=== PATIENT | male | born 1950 | race Caucasian/White ===

== ENCOUNTER 2020-06-23 19:27 | Observation (INO) | payer MEDICARE ==
[~2020-06-23] VITALS: Ht 175.3 cm; Wt 88.5 kg
[2020-06-23] MEDS ORDERED: AMLO5 PO (19:48)
[2020-06-23] MEDS ORDERED: ATEN50 PO (19:49)
[2020-06-23] MEDS ORDERED: ATEN100 PO (19:49)
[2020-06-23] MEDS ORDERED: ASPI325EC PO (19:49)
[2020-06-23] MEDS ORDERED: ATOR20 PO (19:49)
[2020-06-23] MEDS ORDERED: GLIP10 PO (19:50)
[2020-06-23] MEDS ORDERED: HYDCHL25 PO (19:50)
[2020-06-23] MEDS ORDERED: METF500 PO (19:51)
[2020-06-23] MEDS ORDERED: LISI20 PO (19:51)
[2020-06-23] MEDS ORDERED: NOVOLIN N100 UNIT/2 SC (19:51)
[2020-06-23 20:12] LABS: BASOPHILS ABSOLUTE AUTO 0.07 K/mm3 (0.00-0.23); BASOPHILS PERCENT AUTO 1 % (0-2); EOSINOPHILS ABSOLUTE AUTO 0.11 K/mm3 (0.00-0.68); EOSINOPHILS PERCENT AUTO 1 % (0-6); Hematocrit 47.7 % (37.0-53.0); Hemoglobin 16.9 g/dL (13.5-17.5); IMMATURE GRAN ABSOLUTE AUTO 0.05 K/mm3 (0.00-0.10); IMMATURE GRAN PERCENT AUTO 0 % (0-1); LYMPHOCYTES ABSOLUTE AUTO 0.89 K/mm3 (0.84-5.20); LYMPHOCYTES PERCENT AUTO 8 % (21-46); MONOCYTES ABSOLUTE AUTO 0.24 K/mm3 (0.16-1.47); MONOCYTES PERCENT AUTO 2 % (4-13); Mean Corpuscular HGB 31.6 pg (26.0-34.0); Mean Corpuscular HGB Conc 35.4 g/dL (31.5-36.5); Mean Corpuscular Volume 89 fL (80-100); Mean Platelet Volume 9.3 fL (9.1-12.4); NEUTROPHILS ABSOLUTE AUTO 10.13 K/mm3 (1.96-9.15); NEUTROPHILS PERCENT AUTO 88 % (41-73); Platelet Count 126 K/mm3 (150-400); RDW Coefficient Variation 12.8 % (11.7-14.2); RDW Standard Deviation 42.1 fL (35.1-46.3); Red Blood Cell Count 5.35 M/mm3 (4.30-5.90); White Blood Cell Count 11.49 K/mm3 (4.00-11.30)
[2020-06-23 20:28] LABS: Albumin, Blood 2.9 g/dL (3.4-5.0); Albumin/Globulin Ratio 0.8 (0.8-1.8); Bilirubin, Total 1.2 mg/dL (0.1-1.0); Bun/Creatinine Ratio 22.5 (12.0-20.0); Calcium, Blood 8.6 mg/dL (8.5-10.1); Creatinine, Blood 1.73 mg/dL (0.60-1.20); Globulin, Blood 3.8 g/dL (2.2-4.0); Potassium, Blood 4.3 mmol/L (3.5-5.5); Total Protein, Blood 6.7 g/dL (6.4-8.2)
[2020-06-23 21:06] LABS: Source, Urine Voided
[2020-06-23 21:10] LABS: Bilirubin, Urine Neg (Neg); Blood, Urine 3+ (Neg); Glucose Qualitative, Urine 4+ (Neg); Ketones, Urine Neg (Neg); Leukocyte Esterase, Urine 1+ (Neg); Nitrite, Urine Neg (Neg); Protein, Urine 4+ (Neg); Urobilinogen, Urine NORM (Normal)
[2020-06-23 21:16] LABS: Appearance, Urine Hazy (Clear); Color, Urine Yellow (P-Yellow)
[2020-06-23 21:17] LABS: Granular Casts 0-2 /lpf (0)
[2020-06-23 21:19] LABS: Bacteria Mod /hpf; Squamous Epithelial Cells Few /hpf (Few)
--- NOTE | 2020-06-24 00:48 | NUR ---
ADMITTED 69 YR OLD MALE WITH DX OF SEPSIS, UTI AND PYELONEPHRITIS. HX DM. ALERT AND ORIENTED X 4. UP AD MARTIN. ORIENTED TO USE OF CALL LIGHT AND BED CONTROL. CALL LIGHT IN REACH.
--- NOTE | 2020-06-24 03:30 | NUR ---
SHIFT SUMMARY ADMITTED FROM THE ED EARLIER IN THE SHIFT WITH DX OF SEPSIS/PYELONEPHRITIS. ELEVATED TEMP, NEGATIVE TEST TO COVID. ALERT AND ORIENTED. PLACED ON IVF - SEE MAR FOR DETAILS. UP AD MARTIN. CALL LIGHT IN REACH. RESTING QUIETLY AT THIS TIME.
[2020-06-24 04:51] LABS: BASOPHILS ABSOLUTE AUTO 0.07 K/mm3 (0.00-0.23); BASOPHILS PERCENT AUTO 1 % (0-2); EOSINOPHILS ABSOLUTE AUTO 0.05 K/mm3 (0.00-0.68); EOSINOPHILS PERCENT AUTO 0 % (0-6); Hematocrit 42.8 % (37.0-53.0); Hemoglobin 15.3 g/dL (13.5-17.5); IMMATURE GRAN ABSOLUTE AUTO 0.06 K/mm3 (0.00-0.10); IMMATURE GRAN PERCENT AUTO 0 % (0-1); LYMPHOCYTES ABSOLUTE AUTO 1.32 K/mm3 (0.84-5.20); LYMPHOCYTES PERCENT AUTO 10 % (21-46); MONOCYTES ABSOLUTE AUTO 1.36 K/mm3 (0.16-1.47); MONOCYTES PERCENT AUTO 10 % (4-13); Mean Corpuscular HGB 32.1 pg (26.0-34.0); Mean Corpuscular HGB Conc 35.7 g/dL (31.5-36.5); Mean Corpuscular Volume 90 fL (80-100); Mean Platelet Volume 9.3 fL (9.1-12.4); NEUTROPHILS PERCENT AUTO 79 % (41-73); Platelet Count 105 K/mm3 (150-400); RDW Coefficient Variation 12.8 % (11.7-14.2); RDW Standard Deviation 42.2 fL (35.1-46.3); Red Blood Cell Count 4.77 M/mm3 (4.30-5.90); White Blood Cell Count 13.66 K/mm3 (4.00-11.30)
[2020-06-24 05:11] LABS: Albumin, Blood 2.4 g/dL (3.4-5.0); Albumin/Globulin Ratio 0.8 (0.8-1.8); Bun/Creatinine Ratio 21.7 (12.0-20.0); Calcium, Blood 7.8 mg/dL (8.5-10.1); Creatinine, Blood 1.8 mg/dL (0.60-1.20); Globulin, Blood 3.2 g/dL (2.2-4.0); Potassium, Blood 4.3 mmol/L (3.5-5.5); Total Protein, Blood 5.6 g/dL (6.4-8.2)
--- NOTE | 2020-06-24 18:34 | NUR ---
SHIFT SUMMARY. A&OX4, INDEPENDENT TO ROOM, PLEASANT AND COOPERATIVE WITH CARE. PT DENIES PAIN, SOB, N/V. IN TO VISIT TODAY, UPDATE GIVEN WITH VERBAL PERMISSION OF PT AND PT IN ROOM DISCUSSING PLAN OF CARE. CONTINUES WITH IV FLUIDS. SLIGHTLY FEBRILE THIS AFTERNOON, MANAGED WELL WITH APAP. NO OTHER CHANGES OR CONCERNS.
[2020-06-25 04:58] LABS: BASOPHILS ABSOLUTE AUTO 0.06 K/mm3 (0.00-0.23); BASOPHILS PERCENT AUTO 1 % (0-2); EOSINOPHILS ABSOLUTE AUTO 0.32 K/mm3 (0.00-0.68); EOSINOPHILS PERCENT AUTO 3 % (0-6); Hematocrit 42.8 % (37.0-53.0); Hemoglobin 15.1 g/dL (13.5-17.5); IMMATURE GRAN ABSOLUTE AUTO 0.05 K/mm3 (0.00-0.10); IMMATURE GRAN PERCENT AUTO 0 % (0-1); LYMPHOCYTES ABSOLUTE AUTO 1.36 K/mm3 (0.84-5.20); LYMPHOCYTES PERCENT AUTO 12 % (21-46); MONOCYTES ABSOLUTE AUTO 1.18 K/mm3 (0.16-1.47); MONOCYTES PERCENT AUTO 10 % (4-13); Mean Corpuscular HGB 31.4 pg (26.0-34.0); Mean Corpuscular HGB Conc 35.3 g/dL (31.5-36.5); Mean Corpuscular Volume 89 fL (80-100); Mean Platelet Volume 9.8 fL (9.1-12.4); NEUTROPHILS ABSOLUTE AUTO 8.39 K/mm3 (1.96-9.15); NEUTROPHILS PERCENT AUTO 74 % (41-73); Platelet Count 95 K/mm3 (150-400); RDW Coefficient Variation 12.8 % (11.7-14.2); Red Blood Cell Count 4.81 M/mm3 (4.30-5.90); White Blood Cell Count 11.36 K/mm3 (4.00-11.30)
[2020-06-25 05:13] LABS: Bun/Creatinine Ratio 21.4 (12.0-20.0); Calcium, Blood 7.4 mg/dL (8.5-10.1); Creatinine, Blood 1.82 mg/dL (0.60-1.20); Potassium, Blood 4.1 mmol/L (3.5-5.5)
--- NOTE | 2020-06-25 07:36 | NUR ---
SHIFT SUMMARY: PATIENT IS A&OX4, INDEPENDENT IN THE ROOM, USING URINAL TO VOID. NO REPORTS OF PAIN. LOW GRADE TEMP OF 99.2 OBSERVED THAT RESOLVED WITHOUT INTERVENTION.
[2020-06-25] MEDS ORDERED: CEFD300 PO (10:55)
--- NOTE | 2020-06-25 12:08 | NUR ---
1200 PT DISHCARGED HOME VIA PERSONAL VEHICLE ACCOMPANIED AND DRIVEN BY . ESCORTED TO ENTRANCE BY THIS RN. D/C INSTRUCTIONS REVIEWED WITH PT AND COPY PROVIDED. PT INSTRUCTED TO RETURN TO ER FOR SIGNIFICANT ELEVATED TEMPERATURE. IV REMOVED. NEW RX FAXED TO [facility] PER PT REQUEST. NO OTHER CHANGES OR CONCERNS.
== END 2020-06-25 11:58 | disposition home or self-care (01) ==
LOC: ER 19:27 → MEDS 19:28
PROVIDERS: Emergency Medicine; Internal Medicine; Physician Assistant; ADMIT Internal Medicine
DX: N17.9 Acute kidney failure, unspecified (principal); E11.65 Type 2 diabetes mellitus with hyperglycemia; J44.9 Chronic obstructive pulmonary disease, unspecified; N39.0 Urinary tract infection, site not specified; A41.9 Sepsis, unspecified organism; Z79.82 Long term (current) use of aspirin
CPT/HCPCS: 36415; 71045; 76770; 80048; 80053; 81001; 82947; 83605; 85025; 87040; 87076; 87077; 87086; 87185; 87186; 93005; 93010; 94760; 96365; 96376; 99285-25; A9270; G0378; J0696; J1650; J1815; J7030

== ENCOUNTER → 2021-04-12 | Outpatient (CLI) | payer MEDICARE ==
[~2021-04-12] MED LIST: AMLO5 PO; ASPI325EC PO; ATEN100 PO; ATEN50 PO; ATOR20 PO; CEFD300 PO; GLIP10 PO; HYDCHL25 PO; LISI20 PO; METF500 PO; NOVOLIN N100 UNIT/2 SC
[2021-04-12 19:50] LABS: Protein, Urine Quantitative 262.2 mg/dL (0.0-11.9)
== END | disposition home or self-care (01) ==
LOC: LAB SHORT 08:00 → LAB FUT 08:00
PROVIDERS: Internal Medicine Nephrology
DX: N18.30 Chronic kidney disease, stage 3 unspecified (principal); D63.1 Anemia in chronic kidney disease; D50.9 Iron deficiency anemia, unspecified; N25.81 Secondary hyperparathyroidism of renal origin; E55.9 Vitamin D deficiency, unspecified; E78.00 Pure hypercholesterolemia, unspecified; D51.8 Other vitamin B12 deficiency anemias; D52.8 Other folate deficiency anemias; R76.9 Abnormal immunological finding in serum, unspecified; R94.5 Abnormal results of liver function studies; R94.6 Abnormal results of thyroid function studies
CPT/HCPCS: 81050; 82043; 82570; 84156

== ENCOUNTER → 2022-01-16 | Outpatient (CLI) | payer MEDICARE ==
[2022-01-16 17:57] LABS: Sodium, Urine 65 mmol/L (20-110)
[2022-01-16 18:44] LABS: Protein, Urine Quantitative 451.6 mg/dL (0.0-11.9)
== END | disposition home or self-care (01) ==
LOC: LAB 11:00 → LAB SHORT 11:00
PROVIDERS: Internal Medicine Nephrology
DX: N18.30 Chronic kidney disease, stage 3 unspecified (principal); D63.1 Anemia in chronic kidney disease; N25.81 Secondary hyperparathyroidism of renal origin; E55.9 Vitamin D deficiency, unspecified; E78.00 Pure hypercholesterolemia, unspecified; R76.9 Abnormal immunological finding in serum, unspecified; R94.5 Abnormal results of liver function studies; R94.6 Abnormal results of thyroid function studies
CPT/HCPCS: 81050; 82043; 84156; 84300

== ENCOUNTER → 2022-03-19 | Outpatient (CLI) | payer MEDICARE ==
[2022-03-19 17:06] LABS: Protein, Urine Quantitative 461.6 mg/dL (0.0-11.9)
== END | disposition home or self-care (01) ==
LOC: LAB SHORT 10:00
PROVIDERS: Internal Medicine Nephrology
DX: N18.30 Chronic kidney disease, stage 3 unspecified (principal); D63.1 Anemia in chronic kidney disease; N25.81 Secondary hyperparathyroidism of renal origin; E55.9 Vitamin D deficiency, unspecified; E78.00 Pure hypercholesterolemia, unspecified; G60.9 Hereditary and idiopathic neuropathy, unspecified; R94.5 Abnormal results of liver function studies; R94.6 Abnormal results of thyroid function studies
CPT/HCPCS: 81050; 82043; 82570; 84156

== ENCOUNTER 2023-01-16 07:08 | Day surgery (SDC) | payer MEDICARE ==
[~2023-01-16] VITALS: Ht 172.7 cm; Wt 95.0 kg
[2023-01-16] VITALS (7 sets, daily range): BP systolic 152–167; BP diastolic 78–87
--- NOTE | 2023-01-16 09:18 | NUR ---
PT BACK TO RECOVERY ROOM. PT SITTING UP AND EATING BREAKFAST
--- NOTE | 2023-01-16 10:51 | NUR ---
PT AND SPOUSE VERBALIZE D/C INSTRUCTIONS. PT WHEELED OUT OF DEPT. IV D/C CATHETER INTACT.
== END 2023-01-16 10:56 | disposition home or self-care (01) ==
LOC: MHTC 07:08
DX: E11.22 Type 2 diabetes mellitus with diabetic chronic kidney disease (principal); I12.0 Hypertensive chronic kidney disease with stage 5 chronic kidney disease or end stage renal disease; N18.6 End stage renal disease; F17.210 Nicotine dependence, cigarettes, uncomplicated; Z79.899 Other long term (current) drug therapy
CPT/HCPCS: 36558; 76937; 77001; 99152; 99153; C1750; C1769; C1894; J1644; J2250; J3010; J7040

== ENCOUNTER 2023-06-03 10:02 | Day surgery (SDC) | payer MEDICARE ==
[~2023-06-03] VITALS: Ht 172.7 cm; Wt 91.2 kg
[2023-06-03 15:45] VITALS: BP 144/79
== END 2023-06-03 15:30 | disposition home or self-care (01) ==
LOC: MHTC 10:02
DX: E11.22 Type 2 diabetes mellitus with diabetic chronic kidney disease (principal); I12.0 Hypertensive chronic kidney disease with stage 5 chronic kidney disease or end stage renal disease; N18.6 End stage renal disease; E11.621 Type 2 diabetes mellitus with foot ulcer; L97.529 Non-pressure chronic ulcer of other part of left foot with unspecified severity; F17.210 Nicotine dependence, cigarettes, uncomplicated; Z79.899 Other long term (current) drug therapy

== ENCOUNTER 2023-06-09 04:23 | Day surgery (SDC) | payer MEDICARE ==
[~2023-06-09 04:23] MED LIST changes: +ACET325 PO; +Acetaminophen325 M1 PO; +FURO40 PO; +LEVOTHYROXINE25 MC9 PO; +METO100ER; +MIDO5 PO; +MULTIVITAMIN PO; +POTA8 PO; +[UNRECOGNIZED DRUG - OTHER] PO
== END 2023-06-09 23:17 | disposition home or self-care (01) ==
LOC: WOUND 04:23
DX: E10.621 Type 1 diabetes mellitus with foot ulcer (principal); L97.522 Non-pressure chronic ulcer of other part of left foot with fat layer exposed; I12.0 Hypertensive chronic kidney disease with stage 5 chronic kidney disease or end stage renal disease; E10.22 Type 1 diabetes mellitus with diabetic chronic kidney disease; N18.6 End stage renal disease; E10.51 Type 1 diabetes mellitus with diabetic peripheral angiopathy without gangrene; E10.29 Type 1 diabetes mellitus with other diabetic kidney complication; Z99.2 Dependence on renal dialysis; F17.200 Nicotine dependence, unspecified, uncomplicated
CPT/HCPCS: G0463

== ENCOUNTER 2023-06-23 03:59 | Day surgery (SDC) | payer MEDICARE | END 2023-06-23 22:53 | disposition home or self-care (01) | LOC: WOUND 03:59 | DX: E10.621 Type 1 diabetes mellitus with foot ulcer (principal); L97.822 Non-pressure chronic ulcer of other part of left lower leg with fat layer exposed; E10.51 Type 1 diabetes mellitus with diabetic peripheral angiopathy without gangrene; I12.9 Hypertensive chronic kidney disease with stage 1 through stage 4 chronic kidney disease, or unspecified chronic kidney disease; E10.22 Type 1 diabetes mellitus with diabetic chronic kidney disease; N18.6 End stage renal disease; Z79.4 Long term (current) use of insulin; Z72.0 Tobacco use ==

== ENCOUNTER 2023-07-22 07:06 | Day surgery (SDC) | payer MEDICARE ==
[~2023-07-22] VITALS: Ht 172.7 cm; Wt 89.0 kg
[~2023-07-22 07:06] MED LIST changes: +AMLO10 PO; +CALCIUM ACETAT667 MG PO; +KAPSPARGO SPRI100 MG PO; +LEVSOD25 PO; +MULVITA PO; +ZESTRIL40 M1 PO
[2023-07-22 07:34] VITALS: BP 142/75
[2023-07-22] MEDS ORDERED: NS 1,000 ML IV ONE ×2 (07:46→08:31)
[2023-07-22] MEDS ORDERED: FentaNYL Citrate 50 MCG/ML 2 ML Injection ONE (08:31)
[2023-07-22] MEDS ORDERED: Midazolam HCl 1MG / ML 2ML Vial ONE (08:31)
[2023-07-22] MEDS ORDERED: NS 500 ML IV ONE (08:45)
[2023-07-22 10:15] VITALS: BP 141/79
[2023-07-22 10:30] VITALS: BP 140/78
[2023-07-22 10:45] VITALS: BP 141/91
[2023-07-22 11:00] VITALS: BP 133/72
--- NOTE | 2023-07-22 11:10 | NUR ---
PT AND S/O VERBALIZES UYNDERSTANDING WRITTEN AND VERBAL INSTRUCTIONS. PT SITE REMAINS C/D/I. NO BLEEDING NOTED. VSS. NADN. PT IV DC'D. CATH INTACT. PRESSURE DSG APPLIED. PT DRESSES SELF WITHOUT DIFF. PT DC TO HOME VIA S/O BY SHAUNA
== END 2023-07-22 12:49 | disposition home or self-care (01) ==
LOC: MHTC 07:06
DX: T85.611A Breakdown (mechanical) of intraperitoneal dialysis catheter, initial encounter (principal); E11.22 Type 2 diabetes mellitus with diabetic chronic kidney disease; I12.0 Hypertensive chronic kidney disease with stage 5 chronic kidney disease or end stage renal disease; N18.6 End stage renal disease; F17.210 Nicotine dependence, cigarettes, uncomplicated; Z79.899 Other long term (current) drug therapy; Z99.2 Dependence on renal dialysis
CPT/HCPCS: 49418; 99152; 99153; C1750; C1769; C1887; C1894; J2250; J3010; J7030; J7040; Q9967

== ENCOUNTER 2023-07-30 17:01 | Emergency (ER) | payer MEDICARE ==
[~2023-07-30] VITALS: Ht 172.7 cm; Wt 87.1 kg
[2023-07-30 17:14] VITALS: BP 128/67
[2023-07-30 17:31] LABS: BASOPHILS ABSOLUTE AUTO 0.05 K/mm3 (0.00-0.23); BASOPHILS PERCENT AUTO 0 % (0-2); EOSINOPHILS ABSOLUTE AUTO 0.32 K/mm3 (0.00-0.68); EOSINOPHILS PERCENT AUTO 3 % (0-6); Hematocrit 43.1 % (37.0-53.0); IMMATURE GRAN PERCENT AUTO 1 % (0-1); LYMPHOCYTES ABSOLUTE AUTO 1.63 K/mm3 (0.84-5.20); LYMPHOCYTES PERCENT AUTO 13 % (21-46); MONOCYTES ABSOLUTE AUTO 0.85 K/mm3 (0.16-1.47); MONOCYTES PERCENT AUTO 7 % (4-13); Mean Corpuscular HGB Conc 34.8 g/dL (31.5-36.5); Mean Corpuscular Volume 95 fL (80-100); Mean Platelet Volume 9.1 fL (9.1-12.4); NEUTROPHILS ABSOLUTE AUTO 9.73 K/mm3 (1.96-9.15); NEUTROPHILS PERCENT AUTO 77 % (41-73); Platelet Count 179 K/mm3 (150-400); RDW Coefficient Variation 14.1 % (11.7-14.2); RDW Standard Deviation 48.9 fL (35.1-46.3); Red Blood Cell Count 4.55 M/mm3 (4.30-5.90); White Blood Cell Count 12.68 K/mm3 (4.00-11.30)
[2023-07-30 18:00] LABS: Albumin, Blood 2.8 g/dL (3.4-5.0); Albumin/Globulin Ratio 0.6 (0.8-1.8); Bilirubin, Total 0.5 mg/dL (0.1-1.0); Calcium, Blood 9.4 mg/dL (8.5-10.1); Creatinine, Blood 6.21 mg/dL (0.60-1.20); Globulin, Blood 4.7 g/dL (2.2-4.0); Potassium, Blood 4.1 mmol/L (3.5-5.5); Total Protein, Blood 7.5 g/dL (6.4-8.2)
[2023-07-31] MEDS ORDERED: FERSU300 PO (21:40)
[2023-07-31] MEDS ORDERED: NOVOLIN N100 UNIT/2 SC (23:02)
[2023-07-31] MEDS ORDERED: TRAM50 PO (23:03)
[2023-07-31] MEDS ORDERED: [UNRECOGNIZED DRUG - CODE] PO (23:04)
== END 2023-07-30 18:32 | disposition left against medical advice (07) ==
LOC: ER 17:01
PROVIDERS: Student in an Organized Health Care Education/Training Program
DX: R10.9 Unspecified abdominal pain (principal); Z53.29 Procedure and treatment not carried out because of patient's decision for other reasons; K65.9 Peritonitis, unspecified; N18.6 End stage renal disease; R11.2 Nausea with vomiting, unspecified; Z99.2 Dependence on renal dialysis
CPT/HCPCS: 80053; 85025; 87070; 87075; 87077; 87147; 87186; 87205; 89051

== ENCOUNTER 2023-07-31 13:12 | Inpatient (IN) | payer MEDICARE ==
[~2023-07-31] VITALS: Ht 172.7 cm; Wt 91.1 kg
[2023-07-31] MEDS ORDERED: Acetaminophen 325 MG TABLET PO PRN (18:20)
[2023-07-31] MEDS ORDERED: OxyCODONE HCL 5 MG TAB PO PRN (18:20)
[2023-07-31] MEDS ORDERED: Nicotine 21 MG PATCH TOP SCH (19:00)
[2023-07-31] MEDS ORDERED: Vancomycin HCL 1,000 MG in NS 100 ML IV ONE (19:00)
[2023-07-31] MEDS ORDERED: CefTRIAXone Sodium 2,000 MG in NS 100 ML IV SCH (21:00)
[2023-07-31 21:08] VITALS: BP 111/70
[2023-07-31] MEDS ORDERED: FERSU300 PO (21:40)
[2023-07-31] MEDS ORDERED: NS 250 ML IV PRN (22:30)
[2023-07-31] MEDS ORDERED: NOVOLIN N100 UNIT/2 SC (23:02)
[2023-07-31] MEDS ORDERED: TRAM50 PO (23:03)
[2023-07-31] MEDS ORDERED: [UNRECOGNIZED DRUG - CODE] PO (23:04)
--- NOTE | 2023-08-01 04:31 | NUR ---
SHIFT SUMMARY PT ADMITTED THIS SHIFT FOR PERITONITIS. HE HAS A DIALYSIS CATHETER IN HIS ABDOMEN WHICH HAS BECOME INFECTED. HIS WAS WITH HIM WHEN HE ARRIVED ON FLOOR. HE IS INDEPENDANT IN ROOM AND A&OX4. HE HAS SLIGHT DIFFICULTY HEARING, BUT IS VERY PLEASANT AND HAS NO DIFFICULTY UNDERSTANDING DIRECTION GIVEN. CONSULT WITH DR. REAVES ORDERED AND FAXED IN APPROX. 0120. PT HAS BEEN COOPERATIVE WITH CARE. NICOTINE PATCH FELL OFF AND WAS DISPOSED OF APPROX. 0437. LUNG SOUNDS ARE DIMINISHED WITH TIGHT, COURSE SOUNDS ON EXPIRATION.
[2023-08-01 04:37] VITALS: BP 111/62
[2023-08-01] MEDS ORDERED: Levothyroxine Sodium 0.025 MG Tab PO SCH (06:00)
[2023-08-01 06:12] LABS: BASOPHILS ABSOLUTE AUTO 0.05 K/mm3 (0.00-0.23); BASOPHILS PERCENT AUTO 1 % (0-2); EOSINOPHILS ABSOLUTE AUTO 0.15 K/mm3 (0.00-0.68); EOSINOPHILS PERCENT AUTO 2 % (0-6); Hematocrit 39.7 % (37.0-53.0); Hemoglobin 13.7 g/dL (13.5-17.5); IMMATURE GRAN ABSOLUTE AUTO 0.08 K/mm3 (0.00-0.10); IMMATURE GRAN PERCENT AUTO 1 % (0-1); LYMPHOCYTES ABSOLUTE AUTO 1.58 K/mm3 (0.84-5.20); LYMPHOCYTES PERCENT AUTO 16 % (21-46); MONOCYTES ABSOLUTE AUTO 0.75 K/mm3 (0.16-1.47); MONOCYTES PERCENT AUTO 8 % (4-13); Mean Corpuscular HGB 33.2 pg (26.0-34.0); Mean Corpuscular HGB Conc 34.5 g/dL (31.5-36.5); Mean Corpuscular Volume 96 fL (80-100); Mean Platelet Volume 9.1 fL (9.1-12.4); NEUTROPHILS ABSOLUTE AUTO 7.09 K/mm3 (1.96-9.15); NEUTROPHILS PERCENT AUTO 73 % (41-73); Platelet Count 180 K/mm3 (150-400); RDW Coefficient Variation 13.8 % (11.7-14.2); RDW Standard Deviation 48.7 fL (35.1-46.3); Red Blood Cell Count 4.13 M/mm3 (4.30-5.90)
[2023-08-01 06:44] LABS: Alanine Aminotransfer (ALT/SGP 46 U/L (12-78); Albumin, Blood 2.5 g/dL (3.4-5.0); Albumin/Globulin Ratio 0.6 (0.8-1.8); Alk Phos 74 U/L (50-136); Anion Gap 12 mmol/L (3-11); Aspartate Aminotrans (AST/SGOT 29 U/L (12-37); Bilirubin, Total 0.5 mg/dL (0.1-1.0); Blood Urea Nitrogen 39 mg/dL (8-24); Bun/Creatinine Ratio 7.5 (12.0-20.0); CO2, Blood 27 mmol/L (21-32); Calcium, Blood 9.2 mg/dL (8.5-10.1); Chloride, Blood 100 mmol/L (98-108); Creatinine, Blood 5.21 mg/dL (0.60-1.20); Globulin, Blood 4.1 g/dL (2.2-4.0); Glomerular Filtration Rate 11 (60-); Glucose, Blood 229 mg/dL (70-99); Potassium, Blood 3.9 mmol/L (3.5-5.5); Sodium, Blood 135 mmol/L (136-145); Total Protein, Blood 6.6 g/dL (6.4-8.2); Vancomycin, Random 21.2 ug/mL
[2023-08-01] MEDS ORDERED: Insulin Human Lispro 100 Units/ML 3ML Syringe SC SCH (07:30)
[2023-08-01 07:55] VITALS: BP 116/85
[2023-08-01] MEDS ORDERED: Vancomycin HCL 1,000 MG in NS 100 ML IV ONE ×2 (08:30→12:00)
[2023-08-01] MEDS ORDERED: Atorvastatin 10 MG Tab PO SCH (09:00)
[2023-08-01] MEDS ORDERED: Metoprolol Succinate 50 MG TABCR PO SCH (09:00)
[2023-08-01] MEDS ORDERED: Heparin Sodium,Porcine 5,000 UNIT/0.5 ML SDV SC SCH (09:00)
[2023-08-01] MEDS ORDERED: Lisinopril 20 MG Tab PO SCH (09:00)
[2023-08-01] MEDS ORDERED: AmLODIPine Besylate 5 MG Tab PO SCH (09:00)
[2023-08-01] MEDS ORDERED: Insulin NPH 100 Unit / ML 10ML Vial SC SCH (11:00)
[2023-08-01] MEDS ORDERED: NOVOLIN 70100 UNIT/4 SC (11:47)
[2023-08-01] MEDS ORDERED: PROBIOTIC1 EA14 PO (11:48)
--- NOTE | 2023-08-01 12:46 | NUR ---
DISCHARGE Patient ready for discharge. spoke to Jerome on the phone. Plan to have patient DC home and first thing friday, call [facility] office to set up appt. Patient verbalized understanding. Left [facility] unit at 1215.
== END 2023-08-01 12:48 | disposition home or self-care (01) | DRG 919 ==
LOC: ER 13:12 → MEDS 18:16 → ENPENDDIS 08-01 11:58 → MEDS 08-01 12:48
PROVIDERS: Nurse Practitioner Acute Care; ADMIT Internal Medicine
DX: T85.71XA Infection and inflammatory reaction due to peritoneal dialysis catheter, initial encounter (principal); K65.8 Other peritonitis; N18.6 End stage renal disease; I12.0 Hypertensive chronic kidney disease with stage 5 chronic kidney disease or end stage renal disease; E87.1 Hypo-osmolality and hyponatremia; Y73.1 Therapeutic (nonsurgical) and rehabilitative gastroenterology and urology devices associated with adverse incidents; B95.61 Methicillin susceptible Staphylococcus aureus infection as the cause of diseases classified elsewhere; E11.22 Type 2 diabetes mellitus with diabetic chronic kidney disease; E78.5 Hyperlipidemia, unspecified; E03.9 Hypothyroidism, unspecified; J44.9 Chronic obstructive pulmonary disease, unspecified; T85.631A Leakage of intraperitoneal dialysis catheter, initial encounter; F17.200 Nicotine dependence, unspecified, uncomplicated; E88.09 Other disorders of plasma-protein metabolism, not elsewhere classified; E87.70 Fluid overload, unspecified; Z99.2 Dependence on renal dialysis; Z86.73 Personal history of transient ischemic attack (TIA), and cerebral infarction without residual deficits; Z79.4 Long term (current) use of insulin
CPT/HCPCS: 36415; 74176; 80053; 80202; 82947; 85025; 99284-25; A9270; J0696; J1644; J1815; J3370; J7050

== ENCOUNTER 2023-09-02 06:54 | Day surgery (SDC) | payer MEDICARE ==
[2023-09-02] VITALS (7 sets, daily range): BP systolic 116–158; BP diastolic 77–104
[~2023-09-02] VITALS: Ht 172.7 cm; Wt 93.2 kg
[~2023-09-02 06:54] MED LIST changes: +CEPH500 PO; +FERSU300 PO; +NOVOLIN 70100 UNIT/4 SC; +PROBIOTIC1 EA14 PO; +TRAM50 PO; +[UNRECOGNIZED DRUG - CODE] PO
[2023-09-02] MEDS ORDERED: NS 500 ML IV ONE ×2 (07:57→08:00)
[2023-09-02] MEDS ORDERED: Heparin Sodium 1000 Units/ML 10ML MDV ONE (07:57)
[2023-09-02] MEDS ORDERED: FentaNYL Citrate 50 MCG/ML 2 ML Injection ONE ×2 (07:59→09:05)
[2023-09-02] MEDS ORDERED: Midazolam HCl 1MG / ML 2ML Vial ONE ×2 (07:59→09:05)
[2023-09-02] MEDS ORDERED: Heparin Sodium 10,000 Units/ML 1ML MDV ONE (08:00)
--- NOTE | 2023-09-02 10:54 | NUR ---
PT RETURNED TO RECOVERY ROOM IN BED. PD CATH SITE SOFT NON-TENDER WITH NO HEMATOMA, SLIGHT TRACK OOZING AND INTACT DRESSING IN PLACE. R IJ PERM CATH SITE SOFT NON-TENDER WITH NO HEMATOMA, NO BLEEDING. CALL LIGHT IN REACH. PT DRINKING COFFEE AND EATING LUNCH.
--- NOTE | 2023-09-02 11:50 | NUR ---
NO CHANGES TO PD OR PERMCATH SITES. DISCHARGE INSTURCTIONS REVIEWED ALL QUESTIONS ANSWERED. 20 IV DISCONTINUED FROM R AC SITE WITH INTACT CANNULA. PT AMBULATED TO BR TO VOID. PT ESCORTED OUT VIA WHEELCHAIR ESCORT.
== END 2023-09-02 12:00 | disposition home or self-care (01) ==
LOC: MHTC 06:54
DX: T85.71XA Infection and inflammatory reaction due to peritoneal dialysis catheter, initial encounter (principal); T82.41XA Breakdown (mechanical) of vascular dialysis catheter, initial encounter; K65.9 Peritonitis, unspecified; E11.22 Type 2 diabetes mellitus with diabetic chronic kidney disease; I12.0 Hypertensive chronic kidney disease with stage 5 chronic kidney disease or end stage renal disease; N18.6 End stage renal disease; Z87.891 Personal history of nicotine dependence; Z79.899 Other long term (current) drug therapy
CPT/HCPCS: 36582; 49422; 99152; 99153; C1750; C1769; J1644; J2250; J3010; J7040; J7050

== ENCOUNTER 2023-09-16 07:04 | Day surgery (SDC) | payer MEDICARE ==
[2023-09-16] VITALS (8 sets, daily range): BP systolic 85–106; BP diastolic 57–71
[~2023-09-16] VITALS: Ht 172.7 cm; Wt 93.2 kg
[2023-09-16] MEDS ORDERED: Nitroglycerin 2 MG/20 ML BTL ONE (07:15)
[2023-09-16] MEDS ORDERED: NS 250 ML IV ONE (07:15)
[2023-09-16] MEDS ORDERED: NS 1,000 ML IV ONE ×2 (07:15→08:30)
[2023-09-16] MEDS ORDERED: Heparin Sodium 1000 Units/ML 10ML MDV ONE (07:15)
[2023-09-16] MEDS ORDERED: FentaNYL Citrate 50 MCG/ML 2 ML Injection ONE (08:18)
[2023-09-16] MEDS ORDERED: Midazolam HCl 1MG / ML 2ML Vial ONE (08:18)
[2023-09-16] MEDS ORDERED: Phenylephrine HCl 100 MCG/ML-NS 10MLSYR (1MG/10ML) ONE (08:19)
[2023-09-16] MEDS ORDERED: NS 500 ML IV ONE ×2 (08:19→08:30)
[2023-09-16] MEDS ORDERED: CeFAZolin Sodium 2,000 MG VIAL ONE (10:01)
[2023-09-16] MEDS ORDERED: NS 100 ML IV ONE (10:02)
--- NOTE | 2023-09-16 10:10 | NUR ---
ASSUMED CARE OF PT POST PROCEDURE. PT AWAKE AND CONVERSING APPROPRIATELY; DENIES PAIN POST PROCEDURE. MONITOR SR 70'S, B/P 94/67, AFEBRILE, SPI2 93 % RA. PD CATH SITE NO SWELLING/HEMATOMA, MEDIPORE DRESSING AND TEGADERM DRSG INTACT. PT RECEIVING 2 MG IV ANCEF. PT TAKING SIPS OF COFFEE WITHOUT ISSUE.
--- NOTE | 2023-09-16 11:10 | NUR ---
ADDITIONAL 175CC FLUID DRAINED FROM PD CATH, CAP PLACED.
--- NOTE | 2023-09-16 11:56 | NUR ---
PT RECEIVED DISCHARGE INSTRUCTIONS, MED LIST AND AFTER CARE INSTRUCTIONS; VERBALIZED GOOD UNDERSTANDING. PT LEFT FACILITY VIA W/C, CONDITION STABLE.
== END 2023-09-16 11:56 | disposition home or self-care (01) ==
LOC: MHTC 07:04
DX: I12.0 Hypertensive chronic kidney disease with stage 5 chronic kidney disease or end stage renal disease (principal); E11.22 Type 2 diabetes mellitus with diabetic chronic kidney disease; N18.6 End stage renal disease; Z99.2 Dependence on renal dialysis; Z87.891 Personal history of nicotine dependence; Z79.899 Other long term (current) drug therapy
CPT/HCPCS: 49418; 76937; 99152; 99153; C1750; C1769; C1887; C1894; J0690; J1644; J2250; J2371; J3010; J7030; J7040; J7050; Q9967

== ENCOUNTER 2023-11-27 08:18 | Day surgery (SDC) | payer MEDICARE ==
[~2023-11-27] VITALS: Ht 172.7 cm; Wt 93.6 kg
[~2023-11-27 08:18] MED LIST changes: +ATOR20; +FERSU300; +HUMULIN N100 UNIT/5
[2023-11-27] MEDS ORDERED: METO100ER PO (08:42)
[2023-11-27] MEDS ORDERED: NOVOLIN N100 UNIT/2 SL (08:44)
[2023-11-27 08:54] VITALS: BP 101/67
[2023-11-27] MEDS ORDERED: Lactated Ringer's 1,000 ML IV SCH (09:00)
[2023-11-27] MEDS ORDERED: CeFAZolin Sodium 2,000 MG in NS 100 ML IV SCH (09:00)
[2023-11-27] MEDS ORDERED: Insulin Regular 100 UNIT/ML 10ML Vial ONE (09:18)
[2023-11-27] MEDS ORDERED: Insulin Regular 100 UNIT/ML 10ML Vial IV ONE (09:18)
[2023-11-27] MEDS ORDERED: NS 1,000 ML IV SCH (09:20)
--- NOTE | 2023-11-27 09:39 | NUR ---
Ambulatory in Day Surgery History, Chart, Medications and Allergies reviewed before start of procedure. Pre-Op teaching done. Pt verbalizes understanding. Patient States Post-Procedure ride home has been arranged.
[2023-11-27] MEDS ORDERED: Bupivacaine 0.5% HCl 5 MG/ML 30MLVIAL ONE (10:00)
--- NOTE | 2023-11-27 10:08 | NUR ---
0915 INFORMED ANESTHESIA THAT CBG WAS 346. NEW ORDERS TO GIVE INSULIN 10 UNITS IV X1 AND REPEAT BLOOD SUGAR IN 30 MINS TO 1 HR. 1001 MO LOSS PREVENTION ANALYST AND DR MORALES AT BEDSIDE TO TALK WITH PATIENT. SURGERY CANCELLED DUE TO BLOOD SUGAR CONTINUES TO BE 342 AFTER IV REGULAR INSULIN. WILL RESCHEDULE.
--- NOTE | 2023-11-27 10:20 | NUR ---
Patient up to Ambulate independently. Gait steady. Discharge home. Dr. Hdez will reschedule surgery.
== END 2023-11-27 22:59 | disposition home or self-care (01) ==
LOC: ORSCMMR 08:18 → ORD 09:30 → ORSCMMR 09:30
DX: K42.9 Umbilical hernia without obstruction or gangrene (principal); E11.9 Type 2 diabetes mellitus without complications; Z53.9 Procedure and treatment not carried out, unspecified reason
CPT/HCPCS: 82947; 84132; J0690; J1815; J7030; J7120

== ENCOUNTER 2024-02-16 08:00 | Day surgery (SDC) | payer MEDICARE ==
[~2024-02-16] VITALS: Ht 172.7 cm; Wt 100.0 kg
[~2024-02-16 08:00] MED LIST changes: +CALC.25 PO; -FERSU300; +METO100ER PO
[2024-02-16 08:40] VITALS: BP 168/94
[2024-02-16] MEDS ORDERED: Heparin Sodium 1000 Units/ML 10ML MDV ONE (11:24)
[2024-02-16] MEDS ORDERED: NS 500 ML IV ONE (11:24)
[2024-02-16] MEDS ORDERED: NS 1,000 ML IV ONE (11:26)
[2024-02-16] MEDS ORDERED: Heparin Sodium 10,000 Units/ML 1ML MDV ONE (12:02)
[2024-02-16 12:36] VITALS: BP 121/105
--- NOTE | 2024-02-16 12:40 | NUR ---
ASSUMED CARE OF PT POST PROCEDURE. PT AWAKE AND CONVERSING APPROPRIATELY; DENIES PAIN POST PROCEDURE. MONITOR SR 60'S, B/P 121/105, SPO2 95% RA. R CHEST DIALYSIS CATH NO SWELLING/HEMATOMA, TEGADERM DRSG IN PLACE; PRESSURE DRESSING REMAINS IN PLACE.
[2024-02-16 12:45] VITALS: BP 154/93
[2024-02-16 13:00] VITALS: BP 150/92
--- NOTE | 2024-02-16 13:15 | NUR ---
PT DRESSED SELF WITHOUT ISSUE, SITE UNCHANGED.
--- NOTE | 2024-02-16 13:24 | NUR ---
PT AND RECEIVED DISCHARGE INSTRUCTIONS, MED LIST AND AFTER CARE INSTRUCTIONS; VERBALIZED GOOD UNDERSTANDING. PT LEFT FACILITY VIA W/C, CONDITION STABLE.
[2024-02-24] MEDS ORDERED: VISBIOME 112.51 EACH PO (15:32)
== END 2024-02-16 13:24 | disposition home or self-care (01) ==
LOC: MHTC 08:00 → ORSCMMR 08:04 → MHTC 13:24
DX: T82.41XA Breakdown (mechanical) of vascular dialysis catheter, initial encounter (principal); I12.0 Hypertensive chronic kidney disease with stage 5 chronic kidney disease or end stage renal disease; E11.22 Type 2 diabetes mellitus with diabetic chronic kidney disease; N18.6 End stage renal disease; J44.9 Chronic obstructive pulmonary disease, unspecified; E78.5 Hyperlipidemia, unspecified; E03.9 Hypothyroidism, unspecified; Z87.891 Personal history of nicotine dependence; Z79.4 Long term (current) use of insulin; Z79.890 Hormone replacement therapy; Z79.899 Other long term (current) drug therapy; Z86.73 Personal history of transient ischemic attack (TIA), and cerebral infarction without residual deficits
CPT/HCPCS: 36581; C1750; C1769; J1644; J7030; J7040; Q9967

== ENCOUNTER 2024-02-16 14:14 | Emergency (ER) | payer MEDICARE ==
[~2024-02-16] VITALS: Ht 172.7 cm; Wt 99.8 kg
[2024-02-16 14:19] VITALS: BP 144/92
== END 2024-02-16 17:21 | disposition home or self-care (01) ==
LOC: ER 14:14
DX: T82.838A Hemorrhage due to vascular prosthetic devices, implants and grafts, initial encounter (principal); E11.22 Type 2 diabetes mellitus with diabetic chronic kidney disease; N18.6 End stage renal disease; I10 Essential (primary) hypertension; E03.9 Hypothyroidism, unspecified; J44.9 Chronic obstructive pulmonary disease, unspecified; F17.210 Nicotine dependence, cigarettes, uncomplicated; Z86.73 Personal history of transient ischemic attack (TIA), and cerebral infarction without residual deficits; Z79.4 Long term (current) use of insulin; Z79.899 Other long term (current) drug therapy
CPT/HCPCS: 99283

== ENCOUNTER 2024-02-17 16:24 | Emergency (ER) | payer MEDICARE ==
[~2024-02-17] VITALS: Ht 172.7 cm; Wt 99.8 kg
[2024-02-17 17:25] LABS: BASOPHILS ABSOLUTE AUTO 0.05 K/mm3 (0.00-0.23); BASOPHILS PERCENT AUTO 0 % (0-2); EOSINOPHILS ABSOLUTE AUTO 0.09 K/mm3 (0.00-0.68); EOSINOPHILS PERCENT AUTO 1 % (0-6); Hematocrit 36.1 % (37.0-53.0); Hemoglobin 12.8 g/dL (13.5-17.5); IMMATURE GRAN ABSOLUTE AUTO 0.05 K/mm3 (0.00-0.10); IMMATURE GRAN PERCENT AUTO 0 % (0-1); LYMPHOCYTES ABSOLUTE AUTO 1.53 K/mm3 (0.84-5.20); LYMPHOCYTES PERCENT AUTO 13 % (21-46); MONOCYTES ABSOLUTE AUTO 0.94 K/mm3 (0.16-1.47); MONOCYTES PERCENT AUTO 8 % (4-13); Mean Corpuscular HGB 33.9 pg (26.0-34.0); Mean Corpuscular HGB Conc 35.5 g/dL (31.5-36.5); Mean Corpuscular Volume 96 fL (80-100); Mean Platelet Volume 9.6 fL (9.1-12.4); NEUTROPHILS ABSOLUTE AUTO 8.96 K/mm3 (1.96-9.15); NEUTROPHILS PERCENT AUTO 77 % (41-73); Platelet Count 163 K/mm3 (150-400); RDW Coefficient Variation 12.8 % (11.7-14.2); RDW Standard Deviation 45.1 fL (35.1-46.3); Red Blood Cell Count 3.78 M/mm3 (4.30-5.90); White Blood Cell Count 11.62 K/mm3 (4.00-11.30)
[2024-02-17 17:58] LABS: Albumin, Blood 3.1 g/dL (3.4-5.0); Albumin/Globulin Ratio 0.8 (0.8-1.8); Bilirubin, Total 0.7 mg/dL (0.1-1.0); Bun/Creatinine Ratio 6.7 (12.0-20.0); Calcium, Blood 11.7 mg/dL (8.5-10.1); Creatinine, Blood 5.71 mg/dL (0.60-1.20); Globulin, Blood 4.1 g/dL (2.2-4.0); Potassium, Blood 4.1 mmol/L (3.5-5.5); Total Protein, Blood 7.2 g/dL (6.4-8.2)
[2024-02-17 19:41] VITALS: BP 157/76
[2024-02-17 20:23] LABS: Free Thyroxine 1.09 ng/dL (0.70-1.60)
[2024-02-17 20:25] LABS: Thyroid Stimulating Hormone 3.93 uIU/mL (0.360-4.800)
== END 2024-02-17 21:32 | disposition home or self-care (01) ==
LOC: ER 16:24
PROVIDERS: Emergency Medicine; Student in an Organized Health Care Education/Training Program
DX: R41.0 Disorientation, unspecified (principal); E11.22 Type 2 diabetes mellitus with diabetic chronic kidney disease; I12.0 Hypertensive chronic kidney disease with stage 5 chronic kidney disease or end stage renal disease; N18.6 End stage renal disease; E11.65 Type 2 diabetes mellitus with hyperglycemia; E03.9 Hypothyroidism, unspecified; F17.210 Nicotine dependence, cigarettes, uncomplicated; Z79.899 Other long term (current) drug therapy; Z79.890 Hormone replacement therapy; Z79.4 Long term (current) use of insulin; Z86.73 Personal history of transient ischemic attack (TIA), and cerebral infarction without residual deficits; Z99.2 Dependence on renal dialysis
CPT/HCPCS: 70450; 71045; 80053; 82947; 84439; 84443; 85025; 93005; 93010; 99285-25

== ENCOUNTER 2024-02-18 08:56 | Inpatient (IN) | payer MEDICARE ==
[~2024-02-18] VITALS: Ht 172.7 cm; Wt 99.6 kg
[2024-02-18 10:02] LABS: CORONAVIRUS COVID-19 AG Negative (NEGATIVE); INFLUENZA A AG Negative (NEGATIVE); INFLUENZA B AG Negative (NEGATIVE)
[2024-02-18] MEDS ORDERED: NS 1,000 ML IV SCH (10:05)
[2024-02-18] MEDS ORDERED: CefTRIAXone Sodium 1,000 MG in NS 50 ML IV ONE (10:05)
[2024-02-18 10:19] LABS: BASOPHILS ABSOLUTE AUTO 0.03 K/mm3 (0.00-0.23); BASOPHILS PERCENT AUTO 0 % (0-2); EOSINOPHILS ABSOLUTE AUTO 0.05 K/mm3 (0.00-0.68); EOSINOPHILS PERCENT AUTO 0 % (0-6); Hematocrit 37.4 % (37.0-53.0); Hemoglobin 13.1 g/dL (13.5-17.5); IMMATURE GRAN ABSOLUTE AUTO 0.19 K/mm3 (0.00-0.10); IMMATURE GRAN PERCENT AUTO 1 % (0-1); LYMPHOCYTES ABSOLUTE AUTO 0.52 K/mm3 (0.84-5.20); LYMPHOCYTES PERCENT AUTO 3 % (21-46); MONOCYTES ABSOLUTE AUTO 1.15 K/mm3 (0.16-1.47); MONOCYTES PERCENT AUTO 6 % (4-13); Mean Corpuscular HGB 33.9 pg (26.0-34.0); Mean Corpuscular Volume 97 fL (80-100); NEUTROPHILS ABSOLUTE AUTO 16.83 K/mm3 (1.96-9.15); NEUTROPHILS PERCENT AUTO 90 % (41-73); Platelet Count 133 K/mm3 (150-400); RDW Coefficient Variation 12.9 % (11.7-14.2); Red Blood Cell Count 3.87 M/mm3 (4.30-5.90); White Blood Cell Count 18.77 K/mm3 (4.00-11.30)
[2024-02-18 10:34] LABS: Albumin, Blood 3.2 g/dL (3.4-5.0); Albumin/Globulin Ratio 0.8 (0.8-1.8); Bun/Creatinine Ratio 6.6 (12.0-20.0); Calcium, Blood 12.2 mg/dL (8.5-10.1); Creatinine, Blood 7.11 mg/dL (0.60-1.20); Globulin, Blood 4.2 g/dL (2.2-4.0); Potassium, Blood 4.4 mmol/L (3.5-5.5); Total Protein, Blood 7.4 g/dL (6.4-8.2)
[2024-02-18 12:02] LABS: Source, Urine Straight Cath
[2024-02-18 12:17] LABS: Bilirubin, Urine Neg (Neg); Blood, Urine 2+ (Neg); Glucose Qualitative, Urine 4+ (Neg); Ketones, Urine Neg (Neg); Leukocyte Esterase, Urine 1+ (Neg); Nitrite, Urine Neg (Neg); Protein, Urine 4+ (Neg); Urobilinogen, Urine NORM (Normal)
[2024-02-18 12:35] LABS: Appearance, Urine Hazy (Clear); Color, Urine Yellow (P-Yellow)
[2024-02-18 12:36] LABS: Bacteria Rare /hpf; Squamous Epithelial Cells Few /hpf (Few); White Blood Cells, Urine 0-2 /hpf (0-5)
--- NOTE | 2024-02-18 12:40 | NUR ---
DIALYSIS NURSE TO PT BEDSIDE TO ATTEMPT TO DRAWN PERITONEAL FLUID FROM PERITONEAL DIALYSIS CATHETER. PT ABDOMEN IS DISTENDED WITH UMBILICAL PROTURSION. CHANGED EXIT SUTE DRESSING AND IT APPEARS WNL. CONNECTED EFFLUENT SAMPLE BAG TO OBTAIN A FLUID SAMPLE TO BE CULTUTRED. NO FLUID DRANING NTO BAG. HAD PATIENT STAND UP WITH ASSISTANCE AND SHIFT WEIGHT AROUND WITH NO CHANGES. CONNECTED 20ML SYRINGE TO TRY TO ASPIRATE SOME FLUID AND MET RESITANCE. CONNECTED PD DIALYSATE ULTRA BAG TO INSTILL APPROX 200ML FLUID MANUALLY. WILL ALLOW FLUID TO SIT IN PERITONEUM FOR APPOX 2 HRS AND WILL ATTEMPT TO REDRAW FLUID SAMPLE FOR CULTURE.
--- NOTE | 2024-02-18 14:41 | NUR ---
CHEMICAL STRENGTH TESTER TO PT BEDSIDE IN ATTEMPT TO GAIN AN EFFLUENT SAMPLE FROM PT PERITONEAL DIALYSIS CATHETER. PT LAYING IN BED SHAKING UNCONTROLLABLY WHILE AT BEDSIDE TENDING TO PT NEEDS. EFFLUENT BAG CONNECTED AND OPENED NO DRAINAGE COLLECTING IN SAMPLE BAG. HAD PT SHIFT AROUND AND PRESSED ON ABDOMEN AROUND EXIT SITE TO HELP GAIN ENOUGH FLUID FOR LAB TEST. UNABLE TO GET ANY FLUID FOR TESTING. BEDSIDE RN AND [place] [employer] OPERATOR NOTIFIED.
[2024-02-18] MEDS ORDERED: LORazepam 2 MG/ML 1ML Injection IV ONE (15:10)
[2024-02-18] MEDS ORDERED: Acetaminophen 325 MG TABLET PO ONE (15:40)
[2024-02-18] MEDS ORDERED: cefTAZidime 1,000 MG in NS 50 ML IV ONE (16:20)
[2024-02-18 16:35] LABS: International Normalized Ratio 1.14; Prothrombin Time Results 12.1 Sec (9.7-11.5)
[2024-02-18] MEDS ORDERED: Bisacodyl 10 MG Supp PR PRN (17:35)
[2024-02-18] MEDS ORDERED: Magnesium Hydroxide Conc 10 ML UDC PO PRN (17:40)
[2024-02-18] MEDS ORDERED: FLU VACC TS2024-25(6MOS UP)/PF 45 MCG/0.5 ML SYRINGE IM SCH (17:40)
[2024-02-18] MEDS ORDERED: Lactated Ringer's 1,000 ML IV SCH (17:40)
[2024-02-18] MEDS ORDERED: HydrALAZINE HCl 20 MG / ML 1ML Vial IV PRN (17:50)
[2024-02-18] MEDS ORDERED: Vancomycin HCL 1,500 MG in NS 250 ML IV ONE (18:15)
[2024-02-18] MEDS ORDERED: Cefepime HCl 1,000 MG in NS 100 ML IV SCH (18:30)
[2024-02-18] MEDS ORDERED: Metoprolol Succinate 50 MG TABCR PO SCH (19:00)
[2024-02-18 19:05] LABS: Automated CSF WBC Count 0.006 K/mm3 (0-5)
[2024-02-18 19:07] LABS: Automated CSF WBC Count 0.008 K/mm3 (0-5)
[2024-02-18 19:11] LABS: WBC Count, CSF 6 /mm3 (0-5); WBC Count, CSF 8 /mm3 (0-5)
--- NOTE | 2024-02-18 19:14 | NUR ---
DIALYSIS NURSE TO PT RM IN ATTEMPT TO ASPIRATE PERITONEAL DIALYSIS CATHETER. PT JUST TO RM FROM LP, BEDSIDE RN REASSESSING PT AND PROVIDING MEDS. VITALS WNL. PT APPEARS COMFORTABLE. CHANGED HD DRESSING IT WAS COMPLETELY REMOVED FROM EXIT SITE. SITE IS RED AND IRRITATED. PT EXPRESSED CONCERNS ABOUT PT PULLING AT DRESSING. SKIN IS TENDER AND SORE PT WINCES FROM CHLORAPREP. ONE OF THE SUTURES IS DISLODGED. SWITCHED TO USING EXCEPT SKIN CLEANSER TO CLEAN EXIT SITE IT IS LESS ABRASIVE. DRESSING APPILED. CULTURES OBTAINED FROM HEMODIALYSIS CATHETER AND SENT TO LAB. UNSUCESSFUL ATTEMPT TO ASPIRATE FLUID FROM PERITONEAL DIALYSIS CATHETER. CHART READER NOTIFIED.
[2024-02-18 19:15] LABS: RBC Count, CSF 1 /mm3 (0-0)
[2024-02-18 19:21] LABS: RBC Count, CSF 21 /mm3 (0-0)
[2024-02-18 19:28] LABS: Appearance, CSF Clear (Clear); Color, CSF No Color (No Color)
[2024-02-18 20:25] LABS: Lymphocytes, CSF 2 % (40-80); Monocytes, CSF 98 % (15-45)
[2024-02-18 20:30] LABS: Lymphocytes, CSF 2 % (40-80); Monocytes, CSF 92 % (15-45); Neutrophils, CSF 6 % (0-6)
[2024-02-18 20:31] VITALS: BP 104/63
[2024-02-18] MEDS ORDERED: Insulin Human Lispro 100 Units/ML 3ML Syringe SC SCH (21:00)
[2024-02-18] MEDS ORDERED: Docusate Sodium 100 MG Cap PO SCH (21:00)
[2024-02-18] MEDS ORDERED: Lactobacil 2-S.Thermo-Bifido 1 1 Cap PO SCH (21:00)
[2024-02-18] MEDS ORDERED: Sennosides 8.6 MG Tab PO SCH (21:00)
[2024-02-18] MEDS ORDERED: D5W-NS 1,000 ML IV SCH (21:45)
[2024-02-19] VITALS (23 sets, daily range): BP systolic 90–188; BP diastolic 40–102
[2024-02-19] MEDS ORDERED: Melatonin 3 MG Tab PO PRN (01:35)
[2024-02-19] MEDS ORDERED: Acetaminophen 325 MG TABLET PO PRN (01:35)
[2024-02-19] MEDS ORDERED: Levothyroxine Sodium 0.025 MG Tab PO SCH (06:00)
[2024-02-19 06:12] LABS: BASOPHILS ABSOLUTE AUTO 0.05 K/mm3 (0.00-0.23); BASOPHILS PERCENT AUTO 0 % (0-2); EOSINOPHILS ABSOLUTE AUTO 0.01 K/mm3 (0.00-0.68); EOSINOPHILS PERCENT AUTO 0 % (0-6); Hematocrit 32.5 % (37.0-53.0); Hemoglobin 11.1 g/dL (13.5-17.5); IMMATURE GRAN ABSOLUTE AUTO 0.05 K/mm3 (0.00-0.10); IMMATURE GRAN PERCENT AUTO 0 % (0-1); LYMPHOCYTES ABSOLUTE AUTO 0.67 K/mm3 (0.84-5.20); LYMPHOCYTES PERCENT AUTO 5 % (21-46); MONOCYTES ABSOLUTE AUTO 0.51 K/mm3 (0.16-1.47); MONOCYTES PERCENT AUTO 4 % (4-13); Mean Corpuscular HGB 33.7 pg (26.0-34.0); Mean Corpuscular HGB Conc 34.2 g/dL (31.5-36.5); Mean Corpuscular Volume 99 fL (80-100); Mean Platelet Volume 9.9 fL (9.1-12.4); NEUTROPHILS ABSOLUTE AUTO 11.01 K/mm3 (1.96-9.15); NEUTROPHILS PERCENT AUTO 90 % (41-73); Platelet Count 107 K/mm3 (150-400); RDW Coefficient Variation 12.9 % (11.7-14.2); Red Blood Cell Count 3.29 M/mm3 (4.30-5.90)
[2024-02-19 07:07] LABS: Magnesium, Blood 2.2 mg/dL (1.6-2.4)
--- NOTE | 2024-02-19 07:08 | NUR ---
SHIFT SUMMARY PT ARRIVED FROM ED APPROX 1999. AND DAUGHTER AT BEDSIDE. PT AWAITING RESULTS FROM LP FOR POSSIBLE MENINGITIS. CSF CULTURES SHOW NO ORGANISMS. APPROX 2351, LAB CALLED WITH REPORT THAT BLOOD CULTURES CAME BACK WITH GRAM POSITIVE COCCI CLUSTERS. ATTEMPTED TO CALL DR. GONZALEZ APPROX 0011 WITH RESULTS. PHONE LINES NOT CONNECTED TO HIS LINE AT THIS TIME. WORKING ON GETTING RESULTS TO APPROX 0018, AXILLARY TEMP 101. WILL ADMINISTER PO PRN TYLENOL AND CONTINUE TO MONITOR. DR. GONZALEZ ORDERED TYLENOL PO 650MG Q6 PRN AND MELATONIN 3MG PO HS PRN. REPLACED CHG TEGADERM DRESSING OVER RIGHT UPPER CHEST PORT. PT PULLED AT DRESSING AND CAUSED BLOOD/FLUID BUILD-UP UNDER DRESSING AND REMOVED HALF OF DRESSING. PT TOLLERATED WELL. PT SLEEPING OFF AND ON WITHOUT MUCH REST. PT REQUESTED TO SIT UP ON END OF BED. THIS RN SUGGESTED PT SIT IN CHAIR AT BEDSIDE INSTEAD FOR PT SAFETY. PT STILL IN BED AND SLEEPING AGAIN AT 0536. PT UP IN CHAIR WITH ASSISTANCE FROM PT'S .
[2024-02-19 07:23] LABS: Albumin, Blood 2.4 g/dL (3.4-5.0); Anion Gap 15 mmol/L (3-11); Blood Urea Nitrogen 64 mg/dL (8-24); Bun/Creatinine Ratio 7.6 (12.0-20.0); CO2, Blood 22 mmol/L (21-32); Calcium, Blood 10.2 mg/dL (8.5-10.1); Chloride, Blood 100 mmol/L (98-108); Creatinine, Blood 8.37 mg/dL (0.60-1.20); Glomerular Filtration Rate 6 (60-); Glucose, Blood 275 mg/dL (70-99); Phosphorus, Blood 5.2 mg/dL (2.5-4.9); Potassium, Blood 4.1 mmol/L (3.5-5.5); Sodium, Blood 133 mmol/L (136-145); Vancomycin, Random 21.3 ug/mL
[2024-02-19] MEDS ORDERED: Anticoagulant Sod Citrate Soln 3 ML SYR INJ PRN (07:30)
[2024-02-19] MEDS ORDERED: Insulin Isoph 70 / Reg 30 100 Unit/ML 10ML Vial SC SCH (07:30)
[2024-02-19] MEDS ORDERED: Albumin (Human) 25gm/100ml 100 ML IV PRN (07:35)
[2024-02-19] MEDS ORDERED: CalcitrioL 0.5 MCG Cap PO SCH (09:00)
[2024-02-19] MEDS ORDERED: Multivitamins 1 Tab PO SCH (09:00)
[2024-02-19] MEDS ORDERED: Metoprolol Succinate 50 MG TABCR PO SCH (09:00)
[2024-02-19] MEDS ORDERED: Heparin Sodium 5000 Units/ML 1ML MDV SC SCH (09:00)
[2024-02-19] MEDS ORDERED: Atorvastatin 10 MG Tab PO SCH (09:00)
[2024-02-19] MEDS ORDERED: OLANZapine ODT 5 MG Tab MM PRN (13:35)
[2024-02-19] MEDS ORDERED: Vancomycin HCL 750 MG in NS 250 ML IV SCH (14:00)
[2024-02-19] MEDS ORDERED: Lactated Ringer's 500 ML IV ONE ×2 (16:00→18:00)
[2024-02-19] MEDS ORDERED: NS 250 ML IV PRN (18:15)
--- NOTE | 2024-02-19 19:27 | NUR ---
report received verified pt up in chair. right chest wall cath intact and right peritonel cath in place. no c/o pain no distress.
--- NOTE | 2024-02-19 19:29 | NUR ---
0830 pt taken down for dialysis.
--- NOTE | 2024-02-19 19:30 | NUR ---
1130 pt returned confused and agitated after 5 liter removed during dialysis. pt is cooperative and redirectable but is obviously confused. BP and o2 were both very low, pt placed on 4 liter nc and quickly recovered, bp due to agitation recovered quickly as well. pt exited bed, removed cloths and duplication specialist. and was able to be redirected to chair, dr Kurtz was notified and pt was medicated, once pt back in bed pt becames hemodynamicly unstabal and was treated via bolus. pt recovered, family at bedside to assist with care.
[2024-02-19] MEDS ORDERED: NS 500 ML IV ONE (21:40)
[2024-02-19] MEDS ORDERED: Midodrine 5 MG Tab PO ONE (22:50)
[2024-02-19] MEDS ORDERED: Albumin (Human) 25gm/100ml 100 ML IV ONE (22:50)
[2024-02-20 00:18] VITALS: BP 143/67
[2024-02-20 02:45] VITALS: BP 130/65
[2024-02-20 06:00] LABS: Hematocrit 32.8 % (37.0-53.0); Hemoglobin 11.4 g/dL (13.5-17.5)
[2024-02-20 06:23] LABS: Albumin, Blood 3.2 g/dL (3.4-5.0); Anion Gap 16 mmol/L (3-11); Blood Urea Nitrogen 60 mg/dL (8-24); Bun/Creatinine Ratio 8.4 (12.0-20.0); CO2, Blood 22 mmol/L (21-32); Calcium, Blood 9.8 mg/dL (8.5-10.1); Chloride, Blood 102 mmol/L (98-108); Creatinine, Blood 7.14 mg/dL (0.60-1.20); Glomerular Filtration Rate 8 (60-); Glucose, Blood 149 mg/dL (70-99); Magnesium, Blood 2.2 mg/dL (1.6-2.4); Phosphorus, Blood 4.6 mg/dL (2.5-4.9); Potassium, Blood 3.7 mmol/L (3.5-5.5); Sodium, Blood 136 mmol/L (136-145); Vancomycin, Random 25.4 ug/mL
[2024-02-20 06:49] LABS: BASOPHILS ABSOLUTE AUTO 0.03 K/mm3 (0.00-0.23); BASOPHILS PERCENT AUTO 0 % (0-2); EOSINOPHILS PERCENT AUTO 3 % (0-6); IMMATURE GRAN ABSOLUTE AUTO 0.04 K/mm3 (0.00-0.10); IMMATURE GRAN PERCENT AUTO 1 % (0-1); LYMPHOCYTES ABSOLUTE AUTO 0.92 K/mm3 (0.84-5.20); LYMPHOCYTES PERCENT AUTO 14 % (21-46); MONOCYTES ABSOLUTE AUTO 0.51 K/mm3 (0.16-1.47); MONOCYTES PERCENT AUTO 8 % (4-13); Mean Corpuscular HGB 33.5 pg (26.0-34.0); Mean Corpuscular HGB Conc 34.5 g/dL (31.5-36.5); Mean Corpuscular Volume 97 fL (80-100); Mean Platelet Volume 10.1 fL (9.1-12.4); NEUTROPHILS ABSOLUTE AUTO 5.08 K/mm3 (1.96-9.15); NEUTROPHILS PERCENT AUTO 75 % (41-73); Platelet Count 108 K/mm3 (150-400); RDW Standard Deviation 46.3 fL (35.1-46.3); White Blood Cell Count 6.78 K/mm3 (4.00-11.30)
[2024-02-20 07:18] VITALS: BP 142/65
--- NOTE | 2024-02-20 08:04 | NUR ---
RADIO EQUIPMENT REPAIRER SUMMARY PT A/OX3. ADMITED WIT AMS AND SEPSIS SECONDARY TO POSSIBLE PD CATH INFECTIONS. PT VITALS AT BEGINNING OF SHIFT WITH HYPOTENSIVE WITH MAP OF 60. CALL TO METAL WIRE TECHNICIAN HOSPITALIST. NEW ORDER FOR BOLUS 500MLS. RECHECK BP AND CALL BACK. AFTER BOLUS, BP RECHECKED 94/48; MAP OF 63. CHARGE NURSE SPOKE WITH HOSPITALIST AND OBTAINED ORDER FOR 1X MIDODRINE AND ALBUMIN. BOTH GIVEN; BLOOD PRESSURE RECHECKS SHOWED IMPROVED PRESSURE/MAP. PT AT BEDSIDE T/O THE NIGHT. PT CONTINUES TO BE CONFUSED WITH SOME MIXED HALLUCINATIONS. PT FORGETUL AND IRRITABLE AT TIMES. PT IMPULSIVE. BED ALARM IN PLACE. PT NOTED TO SLIGHTLY BETTER ALERTNESS/MENTATION THIS AM. AGREED IMPROVEMENT BUT STILL FAR FROM BASELINE. DR ALEX AT BEDSIDE THIS TIME. DR DISCUSSED RESULTS OF CT AND NEED FOR CONULT WITH IR TO REMOVE PD CATH. EXPRESSED CONCERN ABOUT REMOVING AT THIS TIME. WANTS TO BE SURE IT IS THE CAUSE OF INFECTION BEFORE REMOVING. DR ALEX AGREED TO POSTPONE IR CONSULT AND ORDERED A REPEAT CT OF ABD W/O CONTRAST. PLAN TO OBTAIN AND REVIEW NEW IMAGES TO SEE IF ANY IMPROVEMENT. PT/ AGREEABLE TO PLAN TO POSTPONE.
[2024-02-20] MEDS ORDERED: Metoprolol Succinate 50 MG TABCR PO SCH (09:00)
[2024-02-20 15:27] VITALS: BP 114/61
--- NOTE | 2024-02-20 18:09 | NUR ---
SHIFT SUMMARY: PATIENT A/OX3, HAS SOME CONFUSION AND FORGETFUL ON/OFF T/O SHIFT, BUT EASILY REDIRECTABLE . PATIENT DENIES CP/PRESSURE, SOB, N/V AND DIZZINESS. PATIENT ON TELE, SR HR IN THE 80'S BPM c 1ST DHB/BBB/PAC. PATIENT WEARS O2 PRN FOR COMFORT. PATIENT HAD ECHO DONE TODAY, AWAITING FOR RESULT. DR. POLO (GENERAL SURGEON) CONSULTED TO REMOVED PD AND HD CATHETER, PER DR. POLO HE ALREADY SPOKE c DR. MCKAY OVER THE PHONE RARDING PATIENT CONSULT. PATIENT HAS MOD APPETITE, CONT/INCON OF BLADDER, ATTENDS PLACED AND CHANGED PRN. PATIENT SAT IN THE RECLINER CHAIR ON/OFF T/O SHIFT, TOLERATING WELL. VITAL SIGNS REVIEWED. CHAIR/BED ALARM ON FOR SAFETY. CALL LIGHT IN REACH. PATIENT FAMILY IN ROOM ON/OFF T/O THE DAY.
[2024-02-20 19:41] VITALS: BP 124/61
[2024-02-21] VITALS (24 sets, daily range): BP systolic 72–133; BP diastolic 30–114
[2024-02-21] MEDS ORDERED: OLANZapine 10 MG Vial IM ONE (01:25)
[2024-02-21 06:44] LABS: Hematocrit 34.2 % (37.0-53.0)
[2024-02-21 07:12] LABS: Magnesium, Blood 2.4 mg/dL (1.6-2.4)
--- NOTE | 2024-02-21 07:28 | NUR ---
PREPRESS TECHNICIAN SUMMARY PT A/OX3. PT SHOWED IMPROVED MENTATION AND DIRECTABILITY AT START OF SHIFT. PT COOPERATIVE AND PLEASANT. HELD STOOL SOFTNERS DUE REPEAT LOOSE STOOLS. PT SPOUSE CONTINUES TO BE AT BEDSIDE AND HELPFUL. APROX 0030 PT BECAME JOSE CONFUSED; PULLED OFF TELE LEADS AND DRESSING FOR HD CATHETER. PT ATTEMPTED TO INTERVENE AND PT BECAME COMBATIVE WITH SPOUSE. THIS RN INTERVENED AND ABLE TO REDIRECT. CHARGE NURSE ALSO ASSISTED PT WITH NEW DRESSING AND TELE. CALL TO HOSPITALIST; NEW ORDER FO 1X DOSE IM 5MG ZYPREXA. MEDICATION SEEMED TO HAVE LITTLE EFFECT. PT STAYED MOSTLY WAKEFUL AND CONFUSED T/O THE NIGHT. CONTINUES TO PULL ON LINES AND DRESSINGS. PT MADE NPO AT MIDNIGHT FOR PLANNED SURGER TO REMOVE DIALYSIS CATH. CALL LIGHT ACCESSIBLE. BED ALARM IN PLACE.
[2024-02-21 07:43] LABS: Albumin, Blood 3.1 g/dL (3.4-5.0); Anion Gap 18 mmol/L (3-11); Blood Urea Nitrogen 77 mg/dL (8-24); Bun/Creatinine Ratio 9.2 (12.0-20.0); CO2, Blood 20 mmol/L (21-32); Calcium, Blood 10.2 mg/dL (8.5-10.1); Chloride, Blood 101 mmol/L (98-108); Creatinine, Blood 8.35 mg/dL (0.60-1.20); Glomerular Filtration Rate 6 (60-); Glucose, Blood 223 mg/dL (70-99); Phosphorus, Blood 4.6 mg/dL (2.5-4.9); Potassium, Blood 3.7 mmol/L (3.5-5.5); Sodium, Blood 135 mmol/L (136-145); Vancomycin, Random 22.5 ug/mL
--- NOTE | 2024-02-21 07:51 | NUR ---
CRITICAL LAB VALUE NOTE: RECEIVED A CALL FROM [facility] AT 0743 TO REPORTS PATIENT CRITICAL LAB VALUE CREATININE 8.35. NOTIFIED DR. ALEX, RECEIVED ORDER TO MAKE SURE PATIENT GET DIALYSIS FIRST BEFORE REMOVING THE PD AND HD CATHETER.
[2024-02-21] MEDS ORDERED: Anticoagulant Sod Citrate Soln 3 ML SYR INJ PRN (07:55)
--- NOTE | 2024-02-21 09:49 | NUR ---
NOTE: RECEIVED A CALL FROM [facility] TIFFANY WRIGHT AT 0836. PER TIFFANY SHE REVIEWING THE RHYTHM TREND ON HER MONITOR, SHE NOTICED THAT PATIENT WAS CONVERTED TO AFIB AT 0640 c HR RANGES IN THE 80'S TO LOW 90'S BPM. NOTIFIED DR. CUEVAS AT 0948 REGARDING THIS CONCERNED. PER DR. CUEVAS HE WILL LET DR. BOSE KNOW.
[2024-02-21] MEDS ORDERED: NS 1,000 ML IV ONE (10:12)
--- NOTE | 2024-02-21 10:57 | NUR ---
NOTE: PATIENT HAD HIS ECHO DONE YESTERDAY AND THERE WAS A CONCERNED OF POSSIBLE ENDOCARDITIS. DR. BERKOWITZ (CUPOLA OPERATOR) CAME IN FOR CONSULT, HE SPOKE TO PATIENT AND SPOUSE (CLAUDIO) REGARDING THE CONCERNED OF ECHO RESULT, PLAN OF CARE, TO HAVE DARIUS PROCEDURE DONE TO CONFIRMED THE INFECTION. DR. BERKOWITZ DISCUSSED THE RISK AND BENIFITS OF THE PROCEDURE. PATIENT AND SPOUSE CONSENTED THE PROCEDURE AND THEY BOTH VERBALIZED UNDERSTANDING. PATIENT LEFT THE ROOM AT 1057 TRANSPORTED VIA BED BY [facility] RN'S TO DAY SURGERY FOR HD AND PD CATHETER REMOVAL BY DR. POLO (GENERAL SURGEON) AND DARIUS PROCEDURE BY DR. BERKOWITZ (CUPOLA OPERATOR).
--- NOTE | 2024-02-21 11:06 | NUR ---
Pt. unwilling to run full tx on dialysis. Pt ran for 1 hr and 20 min- tried to talk pt into running longer as Dr. Bee wanted him to run for 3 hrs due to him getting his cvc pulled today. Pt agreed to 30 more minutes, then about 5 min later he asked staff to take him off. We explained why we'd like him to run as long as he could and pt stated to take him off now or he was getting up. Returned blood per p&p. Brian Rodriguez from surgery came to get pt to take to procedure.
[2024-02-21] MEDS ORDERED: Benzocaine Oral Spray 0.5ML UD ONE (11:18)
[2024-02-21] MEDS ORDERED: Rocuronium Bromide 10 MG/ML 5ML Injection IV ONE (11:20)
[2024-02-21] MEDS ORDERED: Ondansetron HCl 2 MG / ML 2ML Vial ONE (11:20)
[2024-02-21] MEDS ORDERED: Sugammadex Sodium 200 MG/2ML SDV (100 MG/ML) ONE (11:21)
[2024-02-21] MEDS ORDERED: propofoL 20 ML IV ONE (11:21)
[2024-02-21] MEDS ORDERED: FentaNYL Citrate 50 MCG/ML 2 ML Injection ONE (11:21)
--- NOTE | 2024-02-21 11:22 | NUR ---
PT TO PACU VIA BED FROM RM 337 FOR PREOP CARE AT 1105. PLEASANT & COOPERTIVE STATES "I CAN'T WAIT FOR THIS TO BE DONE: AFEBRILE/VSS. SURIGAL PACK COMPLETE. SURGICAL HAT/BP CUFF/PAS SLEEVES PLACED. LR AT TKO. NO COMPLAINTS. SQUAD BOSS NOTIFIED OF TELEMETRY REMOVAL FOR SURGERY. RESTING QUIETLY AT THIS TIME.
[2024-02-21] MEDS ORDERED: Phenylephrine HCl 100 MCG/ML-NS 10MLSYR (1MG/10ML) ONE ×2 (11:28→12:43)
--- NOTE | 2024-02-21 11:34 | NUR ---
PT TO OR RM 2 VIA BED AT 1135 IN STABLE CONDITION.
[2024-02-21] MEDS ORDERED: ePHEDrine Sulfate 50 MG/ML 1ML Injection ONE (11:38)
[2024-02-21] MEDS ORDERED: Bupivacaine 0.5% HCl 5 MG/ML 30MLVIAL ONE (11:38)
[2024-02-21] MEDS ORDERED: Droperidol 5 mg/2 ml Vial IV PRN (12:20)
[2024-02-21] MEDS ORDERED: HYDROmorphone HCl/Pf 1MG SYR IV PRN (12:20)
[2024-02-21] MEDS ORDERED: FentaNYL Citrate 50 MCG/ML 2 ML Injection IV PRN ×3 (12:20)
[2024-02-21] MEDS ORDERED: Acetaminophen 325 MG TABLET PO PRN (12:20)
--- NOTE | 2024-02-21 13:40 | NUR ---
NOTE: PATIENT ARRIVES TO ROOM AT 1335 VIA BED FROM RECOVERY. RECEIVED BEDSIDE REPORTS FROM REINALDO AMOR. PATIENT STILL LETHARGIC, CONFUSED, ABLE TO TELL HIS NAME ONLY, HE RECOGNIZED HIS FAMILY AT BEDSIDE, BUT COULD NOT RECALL THIER NAMES. POST-OP VITALS TAKEN; TEMP 97.0, RESP 18, BP 105/83, HR 83 BPM, 96% ON 2L O2 NC. PATIENT DENIES CP/PRESSURE, SOB N/V AND DIZZINESS, STILL ON TELE AFIB HR IN THE 80'S BPM. PATIENT HAS DRESSING TO RU CHEST WALL C/D/I, 2 SMALL INCISION c STERI STRIPS TO R LOWER ABDOMEN. DR. BOSE CAME IN AT AROUND 1340 TO CHECK ON PATIENT AND HE SPOKE TO FAMILY AT BEDSIDE. [facility] PATIENT T/O SHIFT. BED ALARM ON FOR SAFETY. CALL LIGHT IN REACH.
[2024-02-21] MEDS ORDERED: CeFAZolin Sodium 1,000 MG in NS 50 ML IV SCH (14:00)
[2024-02-21] MEDS ORDERED: Doxepin HCL 10 MG CAP PO PRN (15:40)
[2024-02-21] MEDS ORDERED: TraZODone HCl 50 MG Tab PO PRN (15:55)
--- NOTE | 2024-02-21 16:51 | NUR ---
SHIFT SUMMARY: PATIENT HAD HIS PD AND HD CATHETER REMOVED TODAY BY DR. BATES AND DARIUS DONE BY DR. BERKOWITZ. PATIENT CONFUSED, BUT EASILY REDIRECTABLE. PATIENT SLEPT ON /OFF SINCE COMING BACK FROM SURGERY BUT EASILY AROUSABLE c VERBAL STIMULI. POST-OP VSS, CURRENTLY ON 2L O2 FOR COMFORT, DRESSING TO R UPPER CHEST C/D/I, 2 SMALL INCISION TO R LOWER ABDOMEN c STRI STRIPS INTACT AND NO DRAINAIGE NOTED. PATIENT RECEIVED SCHEDULED IV ABX/MEDS PER EMAR. FAMILY AT BEDSIDE. BED ALARM ON FOR SAFETY. CALL LIGHT IN REACH.
[2024-02-21] MEDS ORDERED: Triamcinolone Acet 0.5% Cream 15 gm TOP SCH (21:00)
[2024-02-22 04:39] VITALS: BP 110/64
--- NOTE | 2024-02-22 05:23 | NUR ---
LIFE ASSURANCE REPRESENTATIVE SUMMARY: PT A&O X3 WITH INTERMITTENT CONFUSION. PT AT BEDSIDE T/O SHIFT. PT C/O "FEELING OFF" AT BEGINNING OF SHIFT. PRN CBG CHECKED AT APPROX 1950: 251. CBG RECHECK AT 2203: 263. VS CHECKED Q 2 HRS FOR REMAINDER OF SHIFT. BP TRENDING UP AND REPORTED "FEELING OFF" RESOLVED. PER [facility], PT CONVERTED FROM AFIB TO NSR AROUND 2300. R UPPER CHEST WITH SURGICAL DRESSING, REINFORCED WITH TEGADERM DRESSING. OLD PERITONEAL DIALYSIS SITES ON ABD WITH STERI STRIPS INTACT. PT WITH MIXED CONTINENCE OF BOWEL AND BLADDER. DEIES PAIN. BED IN LOWEST POSITION, CALL LIGHT IN REACH. CARES CONTINUE ORDERED. THIS TO PASS ABOVE INFO TO ONCOMING RN.
[2024-02-22 05:47] LABS: BASOPHILS ABSOLUTE AUTO 0.03 K/mm3 (0.00-0.23); BASOPHILS PERCENT AUTO 1 % (0-2); EOSINOPHILS ABSOLUTE AUTO 0.24 K/mm3 (0.00-0.68); EOSINOPHILS PERCENT AUTO 5 % (0-6); Hematocrit 29.2 % (37.0-53.0); Hemoglobin 10.3 g/dL (13.5-17.5); IMMATURE GRAN ABSOLUTE AUTO 0.05 K/mm3 (0.00-0.10); IMMATURE GRAN PERCENT AUTO 1 % (0-1); LYMPHOCYTES ABSOLUTE AUTO 1.54 K/mm3 (0.84-5.20); LYMPHOCYTES PERCENT AUTO 30 % (21-46); MONOCYTES ABSOLUTE AUTO 0.63 K/mm3 (0.16-1.47); MONOCYTES PERCENT AUTO 12 % (4-13); Mean Corpuscular HGB 33.8 pg (26.0-34.0); Mean Corpuscular HGB Conc 35.3 g/dL (31.5-36.5); Mean Corpuscular Volume 96 fL (80-100); NEUTROPHILS ABSOLUTE AUTO 2.65 K/mm3 (1.96-9.15); NEUTROPHILS PERCENT AUTO 51 % (41-73); Platelet Count 108 K/mm3 (150-400); RDW Coefficient Variation 12.7 % (11.7-14.2); RDW Standard Deviation 44.3 fL (35.1-46.3); Red Blood Cell Count 3.05 M/mm3 (4.30-5.90); White Blood Cell Count 5.14 K/mm3 (4.00-11.30)
[2024-02-22 06:06] LABS: Albumin, Blood 2.6 g/dL (3.4-5.0); Anion Gap 14 mmol/L (3-11); Blood Urea Nitrogen 66 mg/dL (8-24); Bun/Creatinine Ratio 8.5 (12.0-20.0); CO2, Blood 25 mmol/L (21-32); Calcium, Blood 9.3 mg/dL (8.5-10.1); Chloride, Blood 103 mmol/L (98-108); Creatinine, Blood 7.76 mg/dL (0.60-1.20); Glomerular Filtration Rate 7 (60-); Glucose, Blood 173 mg/dL (70-99); Magnesium, Blood 2.4 mg/dL (1.6-2.4); Phosphorus, Blood 5.4 mg/dL (2.5-4.9); Potassium, Blood 3.5 mmol/L (3.5-5.5); Sodium, Blood 138 mmol/L (136-145)
--- NOTE | 2024-02-22 07:35 | NUR ---
AM ASSESSMENT NOTE: PATIENT A/OX3-4, ANSWER TO QUESTIONS APPROPRIATELY. OVERALL, MENATION HAS IMPROVED THIS AM. PER PAINTING SUPERVISOR ALEX, PATIENT WAS AFIB ALL DAY YESTERDAY AND CONVERTED BACK TO NSR AT 2023 LAST NIGHT, HR IN THE 70'S-80'S BPM RANGE. PATIENT DENIES CP/PRESSURE, SOB, N/V AND DIZZINESS. PATIENT SPOUSE AT BEDSIDE, DENIES NEW CONCERNED OR COMPLAINTS AT THIS TIME. WCTM PATIENT T/O SHIFT. CALL LIGHT IN REACH.
[2024-02-22 07:42] VITALS: BP 123/61
[2024-02-22] MEDS ORDERED: Bumetanide 1 MG Tab PO SCH (09:00)
[2024-02-22 15:37] VITALS: BP 124/68
--- NOTE | 2024-02-22 18:08 | NUR ---
SHIFT SUMMARY: PATIENT A/OX4, ANSWER TO QUESTIONS APPROPRIATELY AND ABLE TO MAKE NEEDS KNOWN. PATIENT DENIES CP/PRESSURE, N/V, DIZZINESS AND SOB. PATIENT HAS HAD NO EVENTS ON TELE, SR HR IN THE 70'S-80'S BPM. PATIENT POD-1 REMOVAL OF THE PD AND HD CATHETER, NO COMPLAINTS. DRESSING CHANGED TO R UPPER CHEST WALL, 2 SMALL INCISION TO R LOWER ABDOMEN, STERI STRIPS DRESSING INTACT, NO S/S OF INFECTION AND NO DRAINAIGE NOTED. PATIENT SHOWERED, LINEN CHANGED AND AMBULATES X1 IN HALLWAY c SBA. PATIENT SAT UP IN THE RECLINER CHAIR FOR ABOUT 6 HRS THIS SHIFT, TOLERATED WELL. PATIENT HAS GOOD APPETITE, CONTINENT OF BLADDER AND AMBULATES TO BATHROOM c SBA. PATIENT RECEIVED SCHEDULED IV/MEDS PER EMAR. VITAL SIGNS REVIEWED. CALL LIGHT IN REACH.
[2024-02-22 20:13] VITALS: BP 138/75
[2024-02-23 04:15] VITALS: BP 123/52
[2024-02-23 05:54] LABS: Hematocrit 29.7 % (37.0-53.0); Hemoglobin 10.5 g/dL (13.5-17.5)
--- NOTE | 2024-02-23 06:11 | NUR ---
SEAMER PANTY HOSE SUMMARY: PT A&O X4. IMPROVEMENT FROM YESTERDAY. MAKES NEEDS KNOWN TO STAFF. NO ACUTE CHANGES. PT UP AND AMBULATED THROUGH [place] WITH AT BEGINNING OF SHIFT. DRESSING TO R UPPER CHEST INTACT. DRESSING TO R UPPER CHEST CHANGED AT END OF SHIFT. ABD STERI STRIPS INTACT. TELE IN PLACE, SR IN 90'S BPM. PENDING CULTURE REULTS, IF NEGATIVE, PT TO HAVE PERMACATH PLACED TODAY. CLEAR LIQUID DIET ORDERED FOR BREAKFAST. PT INDEPENDENT WITH BED MOBILITY. BED IN LOW POSITION. CALL LIGHT IN REACH. CARES CONTINUE ORDERED.
[2024-02-23 06:43] LABS: Magnesium, Blood 2.6 mg/dL (1.6-2.4)
[2024-02-23 06:49] LABS: Albumin, Blood 2.8 g/dL (3.4-5.0); Anion Gap 16 mmol/L (3-11); Blood Urea Nitrogen 75 mg/dL (8-24); Bun/Creatinine Ratio 8.3 (12.0-20.0); CO2, Blood 23 mmol/L (21-32); Calcium, Blood 9.2 mg/dL (8.5-10.1); Chloride, Blood 106 mmol/L (98-108); Glomerular Filtration Rate 6 (60-); Glucose, Blood 191 mg/dL (70-99); Phosphorus, Blood 5.3 mg/dL (2.5-4.9); Potassium, Blood 3.9 mmol/L (3.5-5.5); Sodium, Blood 141 mmol/L (136-145)
[2024-02-23 07:27] VITALS: BP 135/75
--- NOTE | 2024-02-23 15:07 | NUR ---
CONTACTED IR DR AVILES REGARDING NEGATIVE 2ND BLOOD CULTURE AND REQUEST FOR CONSULT FOR PERMACATH. PER DR AVILES PATIENT TO BE NPO AFTER MIDNIGHT AND HOLD HEPARIN TONIGHT AND TOMORROW.
[2024-02-23 16:21] VITALS: BP 155/75
--- NOTE | 2024-02-23 16:53 | NUR ---
PATIENT A/O X4. PATIENT HAS BEEN UP IN THE ROOM MOVING INDEPENDENTLY AND REQUIRED NO ASSISTANCE. HOWEVER, PATIENT REQUIRES STANDBY ASSIST WHEN WALKING IN THE HALLS. BLOOD CULTURE X2 NEGATIVE AND INTERVENTIONAL RADIOLOGY CONSULTED. PATIENT PENDING PLACEMENT OF PERMACATH PLACEMENT TOMMORROW. PATIENT NPO AFTER MIDNIGHT. HEPARIN DOSE TO BE HELD TOMORROW. PATIENT'S IV IN RIGHT FOREARM SALINE LOCKED. PATIENT ABLE TO CALL FOR ASSISTNACE. CALL LIGHT WITHIN REACH.
[2024-02-23 20:35] VITALS: BP 123/56
[2024-02-24] VITALS (10 sets, daily range): BP systolic 95–155; BP diastolic 38–78
--- NOTE | 2024-02-24 03:03 | NUR ---
CONTACTED. PATIENTS BLOOD SUGAR BETWEEN 74-77. PATIENT IS NPO FOR PROCEDURE. DR. GONZALEZ ORDERED FOR D5 1/2NS AT 75ML/HR X1 LITER.
[2024-02-24] MEDS ORDERED: D5W-1/2NS 1,000 ML IV SCH (03:10)
--- NOTE | 2024-02-24 04:20 | NUR ---
SHIFT SUMMARY. PATIENT IS A&OX4. PATIENT AMBULATES INDEPENDENTLY IN ROOM. PATIENT SBA IN HALLWAY. PATIENT WHEELED HALLWAY WITH D/T CBG OF 74 UP TO 77-DR. GONZALEZ CALLED AND NOTIFED-ORDERED FOR D5 1/2NS-SEE PREVIOUS NOTE. PATIENT UP IN ROOM WITH WATCHING TV. BLOOD CULTURES NEGATIVE X2 DAYS-PLAN IS FOR PATIENT TO HAVE PERMACATH PLACED TODAY 02/24/24. PATIENT IS TALKATIVE AND AT TIEMS ARGUMENTATIVE IN REGARDS TO CARE. BED IS LOCKED IN THE LOWEST POSITION WITH CALL LIGHT IN REACH. CARE IS ONGOING.
[2024-02-24 05:53] LABS: Hemoglobin 10.9 g/dL (13.5-17.5)
[2024-02-24 06:29] LABS: Magnesium, Blood 2.5 mg/dL (1.6-2.4)
[2024-02-24 06:42] LABS: Albumin, Blood 3.1 g/dL (3.4-5.0); Anion Gap 16 mmol/L (3-11); Blood Urea Nitrogen 75 mg/dL (8-24); Bun/Creatinine Ratio 7.9 (12.0-20.0); CO2, Blood 23 mmol/L (21-32); Calcium, Blood 9.6 mg/dL (8.5-10.1); Chloride, Blood 107 mmol/L (98-108); Creatinine, Blood 9.52 mg/dL (0.60-1.20); Glomerular Filtration Rate 5 (60-); Glucose, Blood 147 mg/dL (70-99); Phosphorus, Blood 5.1 mg/dL (2.5-4.9); Potassium, Blood 3.7 mmol/L (3.5-5.5); Sodium, Blood 142 mmol/L (136-145)
[2024-02-24] MEDS ORDERED: Anticoagulant Sod Citrate Soln 3 ML SYR INJ PRN (07:25)
[2024-02-24] MEDS ORDERED: Heparin Sodium 1000 Units/ML 10ML MDV ONE ×2 (12:03→12:58)
[2024-02-24] MEDS ORDERED: NS 250 ML IV ONE ×2 (12:03→12:49)
[2024-02-24] MEDS ORDERED: Midazolam HCl 1MG / ML 2ML Vial ONE (12:48)
[2024-02-24] MEDS ORDERED: FentaNYL Citrate 50 MCG/ML 2 ML Injection ONE (12:48)
--- NOTE | 2024-02-24 12:49 | NUR ---
PATIENT TAKENT TO INTERVENTIONAL RADIOLOGY FOR PERMACATH PLACEMENT AND THEN WILL GO DIRECTLY TO DIALYSIS AFTER.
[2024-02-24] MEDS ORDERED: VISBIOME 112.51 EACH PO ×2 (15:32)
--- NOTE | 2024-02-24 17:09 | NUR ---
DISCHARGE SUMMARY: PATIENT A/O X 4, PATIENT WAS GIVEN DISCHARGE INSTRUCTION AND APPT FOR DARREL FOR ANTIBIOTICS. PATIENT VERBALIZED UNDERSTANDING WITH ALL INFORMATION AND VOICED NO QUESTIONS. PATIENT TAKEN VIA WHEELCHAIR TO AWAITING VEHICLE.
== END 2024-02-24 17:09 | disposition home or self-care (01) | DRG 981 ==
LOC: ER 08:56 → PCU 17:01 → ER 17:01 → ERHOLD 17:35 → MEDS 17:35
PROVIDERS: Emergency Medicine; Family Medicine; Internal Medicine Nephrology; Surgery; ADMIT Internal Medicine
PROC: 009U3ZX Drainage of Spinal Canal, Percutaneous Approach, Diagnostic (ICD-10-PCS; 2024-02-18)
PROC: 3E03329 Introduction of Other Anti-infective into Peripheral Vein, Percutaneous Approach (ICD-10-PCS; 2024-02-19)
PROC: 05PYX3Z Removal of Infusion Device from Upper Vein, External Approach (ICD-10-PCS; 2024-02-21)
PROC: 0WPG03Z Removal of Infusion Device from Peritoneal Cavity, Open Approach (ICD-10-PCS; principal; 2024-02-21 10:00)
PROC: 0JH63XZ Insertion of Tunneled Vascular Access Device into Chest Subcutaneous Tissue and Fascia, Percutaneous Approach (ICD-10-PCS; 2024-02-24)
PROC: 02HV33Z Insertion of Infusion Device into Superior Vena Cava, Percutaneous Approach (ICD-10-PCS; 2024-02-24)
PROC: B518ZZA Fluoroscopy of Superior Vena Cava, Guidance (ICD-10-PCS; 2024-02-24)
PROC: B548ZZA Ultrasonography of Superior Vena Cava, Guidance (ICD-10-PCS; 2024-02-24)
DX: T80.211A Bloodstream infection due to central venous catheter, initial encounter (principal); A41.01 Sepsis due to Methicillin susceptible Staphylococcus aureus; G92.8 Other toxic encephalopathy; J96.01 Acute respiratory failure with hypoxia; N18.6 End stage renal disease; R65.20 Severe sepsis without septic shock; T85.611A Breakdown (mechanical) of intraperitoneal dialysis catheter, initial encounter; I12.0 Hypertensive chronic kidney disease with stage 5 chronic kidney disease or end stage renal disease; E87.1 Hypo-osmolality and hyponatremia; E78.5 Hyperlipidemia, unspecified; E11.9 Type 2 diabetes mellitus without complications; Z99.2 Dependence on renal dialysis; E21.3 Hyperparathyroidism, unspecified; E11.22 Type 2 diabetes mellitus with diabetic chronic kidney disease; Z86.73 Personal history of transient ischemic attack (TIA), and cerebral infarction without residual deficits; Z79.4 Long term (current) use of insulin; Z79.899 Other long term (current) drug therapy; Z79.890 Hormone replacement therapy; D63.1 Anemia in chronic kidney disease
CPT/HCPCS: 36415; 62328; 71046; 71250; 74176; 76937; 80053; 80069; 80202; 81001; 82945; 82947; 83605; 83735; 84157; 85014; 85018; 85025; 85610; 85730; 87040; 87070; 87077; 87086; 87147; 87186; 87428-QW; 89051; 93005; 93010; 93306; 93312; 93325; 94760; 96361; 96365; 96367; 96375; 97110; 97162; 97530; 99152; 99153; 99285-25; A9270; C1750; C1769; C1894; J0690; J0692; J0696; J0713; J1644; J1815; J2060; J2250; J2371; J2405; J2704; J3010; J3370; J7030; J7042; J7050; J7120; P9047

== ENCOUNTER 2024-02-25 06:39 | Day surgery (SDC) | payer MEDICARE ==
[~2024-02-25 06:39] MED LIST changes: +CeFAZolin Sodium 1,000 MG in NS 50 ML IV SCH; +VISBIOME 112.51 EACH PO
[2024-02-25 11:15] VITALS: BP 128/76
== END 2024-02-25 11:39 | disposition home or self-care (01) ==
LOC: ATC 06:39
DX: R78.81 Bacteremia (principal); B95.61 Methicillin susceptible Staphylococcus aureus infection as the cause of diseases classified elsewhere; E11.22 Type 2 diabetes mellitus with diabetic chronic kidney disease; I12.0 Hypertensive chronic kidney disease with stage 5 chronic kidney disease or end stage renal disease; N18.6 End stage renal disease; Z79.4 Long term (current) use of insulin; Z87.891 Personal history of nicotine dependence; Z99.2 Dependence on renal dialysis; Z79.899 Other long term (current) drug therapy
CPT/HCPCS: 96365; J0690

== ENCOUNTER 2024-02-26 02:39 | Day surgery (SDC) | payer MEDICARE ==
[~2024-02-26 02:39] MED LIST changes: -CeFAZolin Sodium 1,000 MG in NS 50 ML IV SCH
[2024-02-26] MEDS ORDERED: CeFAZolin Sodium 1,000 MG in NS 50 ML IV SCH (06:00)
[2024-02-26 11:02] VITALS: BP 110/66
== END 2024-02-26 11:26 | disposition home or self-care (01) ==
LOC: ATC 02:39
DX: R78.81 Bacteremia (principal); B95.61 Methicillin susceptible Staphylococcus aureus infection as the cause of diseases classified elsewhere; I12.0 Hypertensive chronic kidney disease with stage 5 chronic kidney disease or end stage renal disease; E11.22 Type 2 diabetes mellitus with diabetic chronic kidney disease; N18.6 End stage renal disease; Z99.2 Dependence on renal dialysis; E78.5 Hyperlipidemia, unspecified; Z79.4 Long term (current) use of insulin; Z79.899 Other long term (current) drug therapy; Z87.891 Personal history of nicotine dependence; Z86.19 Personal history of other infectious and parasitic diseases; Z86.73 Personal history of transient ischemic attack (TIA), and cerebral infarction without residual deficits
CPT/HCPCS: 96365; J0690

== ENCOUNTER 2024-02-27 03:51 | Day surgery (SDC) | payer MEDICARE ==
[2024-02-27] MEDS ORDERED: CeFAZolin Sodium 1,000 MG in NS 50 ML IV SCH (06:00)
[2024-02-27 11:18] VITALS: BP 127/69
== END 2024-02-27 11:40 | disposition home or self-care (01) ==
LOC: ATC 03:51
DX: R78.81 Bacteremia (principal); B95.61 Methicillin susceptible Staphylococcus aureus infection as the cause of diseases classified elsewhere; E78.5 Hyperlipidemia, unspecified; I12.0 Hypertensive chronic kidney disease with stage 5 chronic kidney disease or end stage renal disease; E11.22 Type 2 diabetes mellitus with diabetic chronic kidney disease; N18.6 End stage renal disease; Z99.2 Dependence on renal dialysis; Z87.891 Personal history of nicotine dependence; Z86.19 Personal history of other infectious and parasitic diseases; Z79.4 Long term (current) use of insulin; Z79.890 Hormone replacement therapy; Z79.899 Other long term (current) drug therapy; Z86.73 Personal history of transient ischemic attack (TIA), and cerebral infarction without residual deficits
CPT/HCPCS: 96365; J0690

== ENCOUNTER 2024-02-28 07:49 | Observation (INO) | payer MEDICARE ==
[2024-02-28] VITALS (19 sets, daily range): BP systolic 77–200; BP diastolic 51–168
[~2024-02-28] VITALS: Ht 172.7 cm; Wt 97.5 kg
[2024-02-28 08:49] LABS: BASOPHILS ABSOLUTE AUTO 0.08 K/mm3 (0.00-0.23); BASOPHILS PERCENT AUTO 1 % (0-2); EOSINOPHILS ABSOLUTE AUTO 0.28 K/mm3 (0.00-0.68); EOSINOPHILS PERCENT AUTO 2 % (0-6); Hematocrit 32.8 % (37.0-53.0); Hemoglobin 11.1 g/dL (13.5-17.5); IMMATURE GRAN PERCENT AUTO 3 % (0-1); LYMPHOCYTES ABSOLUTE AUTO 3.08 K/mm3 (0.84-5.20); LYMPHOCYTES PERCENT AUTO 26 % (21-46); MONOCYTES ABSOLUTE AUTO 0.84 K/mm3 (0.16-1.47); MONOCYTES PERCENT AUTO 7 % (4-13); Mean Corpuscular HGB 33.1 pg (26.0-34.0); Mean Corpuscular HGB Conc 33.8 g/dL (31.5-36.5); Mean Corpuscular Volume 98 fL (80-100); Mean Platelet Volume 9.2 fL (9.1-12.4); NEUTROPHILS ABSOLUTE AUTO 7.12 K/mm3 (1.96-9.15); NEUTROPHILS PERCENT AUTO 60 % (41-73); Platelet Count 225 K/mm3 (150-400); RDW Coefficient Variation 13.1 % (11.7-14.2); RDW Standard Deviation 45.5 fL (35.1-46.3); Red Blood Cell Count 3.35 M/mm3 (4.30-5.90)
[2024-02-28 09:05] LABS: International Normalized Ratio 1.03
[2024-02-28 09:18] LABS: Albumin, Blood 3.2 g/dL (3.4-5.0); Anion Gap 16 mmol/L (3-11); Blood Urea Nitrogen 59 mg/dL (8-24); Bun/Creatinine Ratio 7.3 (12.0-20.0); CO2, Blood 27 mmol/L (21-32); Calcium, Blood 10.6 mg/dL (8.5-10.1); Chloride, Blood 100 mmol/L (98-108); Creatinine, Blood 8.07 mg/dL (0.60-1.20); Glomerular Filtration Rate 7 (60-); Glucose, Blood 221 mg/dL (70-99); Potassium, Blood 4.3 mmol/L (3.5-5.5); Sodium, Blood 139 mmol/L (136-145)
[2024-02-28] MEDS ORDERED: Furosemide 80 MG Tab PO PRN (09:30)
[2024-02-28] MEDS ORDERED: FLU VACC TS2024-25(6MOS UP)/PF 45 MCG/0.5 ML SYRINGE IM ONE (09:35)
[2024-02-28] MEDS ORDERED: Midodrine 5 MG Tab PO PRN (09:35)
[2024-02-28] MEDS ORDERED: CeFAZolin Sodium 2,000 MG in NS 100 ML IV ONE (09:55)
[2024-02-28] MEDS ORDERED: Calcium Acetate 667 MG Gel Cap PO SCH (12:30)
[2024-02-28] MEDS ORDERED: NS 250 ML IV ONE (14:19)
[2024-02-28] MEDS ORDERED: Heparin Sodium 1000 Units/ML 10ML MDV ONE (14:19)
[2024-02-28] MEDS ORDERED: NS 500 ML IV ONE (14:23)
[2024-02-28] MEDS ORDERED: Midazolam HCl 1MG / ML 2ML Vial ONE (14:47)
[2024-02-28] MEDS ORDERED: FentaNYL Citrate 50 MCG/ML 2 ML Injection ONE (14:48)
[2024-02-28] MEDS ORDERED: Anticoagulant Sod Citrate Soln 3 ML SYR INJ PRN (18:35)
--- NOTE | 2024-02-28 19:14 | NUR ---
PT PLEASANT SINCE ADMIT. A/O X3 LUNGS CLEAR, RESP EASY, UNLABORED. DIALYSIS PORT REMOVED FROM RT UPPER CHEST WALL. BANDAGED, CDI. NEW DIALYSIS PORT REPLACED TODAY PRIOR TO ADMIT TO ROOM. CDI. VSS. AT BEDSIDE. ON OTHER CONCERNS NOTED. SPOKE TO DR ALEX. DIALYSIS REQUESTED AT HOSP. PT TO DIALYSIS WHEN DIALYSIS CALLED IN AND READY AT 1845. BED IN LOW POSITION, TAKEN TO DIALYSIS AT 1845.
[2024-02-28] MEDS ORDERED: Lactobacil 2-S.Thermo-Bifido 1 1 Cap PO SCH (21:00)
[2024-02-28] MEDS ORDERED: INSULIN NPH HUMAN ISOPHANE 100 UNIT/ML SC SCH (21:00)
[2024-02-28] MEDS ORDERED: [UNRECOGNIZED DRUG - OTHER] SC SCH (21:00)
[2024-02-28] MEDS ORDERED: Lisinopril 20 MG Tab PO SCH (21:00)
--- NOTE | 2024-02-29 02:41 | NUR ---
PT ARRIVED BACK FROM DIALYSIS AT 2250. PT ALERT ORIENTED ABLE TO VERBALIZE NEEDS. PTS IS AT BEDSIDE. VSS. HE HAD LISINOPRIL DUE BUT BP WAS LOW SO LISINOPRIL WAS HELD. DIALYSIS PORT INTACT TO LT SIDE OF CHEST. NO C/O PAIN. FS WAS 224. PT WAS UNHAPPY ABOUT NEEDING TO STAY UNTIL THE MORNING TO GET RECHECK ON HIS LABS BUT HE AGREED TO STAY.
[2024-02-29 03:57] VITALS: BP 128/68
--- NOTE | 2024-02-29 04:37 | NUR ---
SHIFT SUMMARY PT ALERT ORIENTED X 4 ABLE TO VERBALIZE NEEDS CALLS APPROPRIATELY. AMBULATES TO BATHROOM WITH 1 PERSON SBA. HE WASNT HAPPY ABOUT STAYING THE NIGHT BUT AFTER I EXPLAINED HIS KIDNEY LEVELS AND THAT WE WANTED TO RECHECK THEM THIS MORNING HE AGREED TO STAY. HE HAS HIS DIALYSIS PORT INTACT TO HIS LT CHEST THAT WAS PUT IN YESTERDAY SITE LOOKS GOOD WITH DRESSING INTACT VSS ON RA. NO C/O CHEST PAIN OR PRESSURE. FS WAS 224 LAST NIGHT AND NOVOLIN WAS GIVEN. NEURO CHECKS WNL HE URINATED X 2 BUT HE STATED THAT HE DONT URINATE VERY MUCH SINCE REQUIRING DIALYSIS. HES AWAITING LAB RESULTS TODAY TO SEE IF HE WILL BE DISCHARGED. HE LIKES TO SIT UP ON THE SIDE OF THE BED. SITTING UP ON THE SIDE OF THE BED WITH CALL LIGHT IN REACH
[2024-02-29] MEDS ORDERED: Levothyroxine Sodium 0.025 MG Tab PO SCH (06:00)
[2024-02-29 07:28] VITALS: BP 139/76
[2024-02-29] MEDS ORDERED: Heparin Sodium 5000 Units/ML 1ML MDV SC SCH (09:00)
[2024-02-29] MEDS ORDERED: Metoprolol Succinate 50 MG TABCR PO SCH (09:00)
[2024-02-29] MEDS ORDERED: Ferrous Sulfate 325 MG Tab PO SCH (09:00)
[2024-02-29] MEDS ORDERED: Multivitamins 1 Tab PO SCH (09:00)
[2024-02-29] MEDS ORDERED: Calcitriol 0.25 MCG Cap PO SCH (09:00)
[2024-02-29] MEDS ORDERED: Atorvastatin 10 MG Tab PO SCH (09:00)
[2024-02-29] MEDS ORDERED: CeFAZolin 1000MG in D5W 50 ML IV ONE (09:50)
[2024-02-29] MEDS ORDERED: CeFAZolin Sodium 1,000 MG in NS 50 ML IV ONE (10:00)
[2024-02-29 10:17] LABS: Hematocrit 30.5 % (37.0-53.0); Hemoglobin 10.3 g/dL (13.5-17.5); Mean Corpuscular HGB 33.1 pg (26.0-34.0); Mean Corpuscular HGB Conc 33.8 g/dL (31.5-36.5); Mean Corpuscular Volume 98 fL (80-100); Platelet Count 189 K/mm3 (150-400); RDW Coefficient Variation 13.4 % (11.7-14.2); RDW Standard Deviation 46.9 fL (35.1-46.3); Red Blood Cell Count 3.11 M/mm3 (4.30-5.90); White Blood Cell Count 11.39 K/mm3 (4.00-11.30)
[2024-02-29 10:34] LABS: Albumin, Blood 3.1 g/dL (3.4-5.0); Anion Gap 11 mmol/L (3-11); Blood Urea Nitrogen 38 mg/dL (8-24); Bun/Creatinine Ratio 5.9 (12.0-20.0); CO2, Blood 28 mmol/L (21-32); Calcium, Blood 9.1 mg/dL (8.5-10.1); Chloride, Blood 99 mmol/L (98-108); Creatinine, Blood 6.48 mg/dL (0.60-1.20); Glomerular Filtration Rate 8 (60-); Glucose, Blood 195 mg/dL (70-99); Magnesium, Blood 2.1 mg/dL (1.6-2.4); Phosphorus, Blood 4.2 mg/dL (2.5-4.9); Potassium, Blood 4.4 mmol/L (3.5-5.5); Sodium, Blood 134 mmol/L (136-145)
--- NOTE | 2024-02-29 10:51 | NUR ---
DISCHARGE REVIEWED WITH PT AND SPOUSE. NO TELE. PT TO KEEP IV FOR OUTPATIENT INFUSION. DIALYSIS PORT CDI. NO BLEEDING NOTED. PT VERBALIZED UNDERSTANDING MEDS AND IINST. TO GO TO INFUSION CLINIC TOMORROW, AND DIALYSIS ORDERED. PT OUT IN WHEELCHAIR AT 1052 WITH .
== END 2024-02-29 11:15 | disposition home or self-care (01) ==
LOC: ER 07:49 → ERHOLD 07:50 → MEDS 07:50
PROVIDERS: Student in an Organized Health Care Education/Training Program; ADMIT Internal Medicine
DX: T82.41XA Breakdown (mechanical) of vascular dialysis catheter, initial encounter (principal); I12.0 Hypertensive chronic kidney disease with stage 5 chronic kidney disease or end stage renal disease; E11.22 Type 2 diabetes mellitus with diabetic chronic kidney disease; N18.6 End stage renal disease; E03.9 Hypothyroidism, unspecified; E78.5 Hyperlipidemia, unspecified; J44.9 Chronic obstructive pulmonary disease, unspecified; D50.9 Iron deficiency anemia, unspecified; Z99.2 Dependence on renal dialysis; Z79.4 Long term (current) use of insulin; Z79.890 Hormone replacement therapy; Z79.899 Other long term (current) drug therapy; Z87.891 Personal history of nicotine dependence; Z91.048 Other nonmedicinal substance allergy status; Z86.19 Personal history of other infectious and parasitic diseases
CPT/HCPCS: 36415; 36581; 80048; 80069; 82947; 83735; 85025; 85027; 85610; 85730; 93005; 93010; 96365; 96366; 96372; 99285-25; A9270; C1750; C1769; G0257; G0378; J0690; J1644; J2250; J3010; J7040; J7050; Q9967

== ENCOUNTER 2024-03-01 03:54 | Day surgery (SDC) | payer MEDICARE ==
[~2024-03-01 03:54] MED LIST changes: +CeFAZolin Sodium 1,000 MG in NS 50 ML IV SCH
[2024-03-01 11:53] VITALS: BP 142/73
== END 2024-03-01 12:20 | disposition home or self-care (01) ==
LOC: ATC 03:54
DX: R78.81 Bacteremia (principal); B95.61 Methicillin susceptible Staphylococcus aureus infection as the cause of diseases classified elsewhere; I12.0 Hypertensive chronic kidney disease with stage 5 chronic kidney disease or end stage renal disease; E11.22 Type 2 diabetes mellitus with diabetic chronic kidney disease; N18.6 End stage renal disease; E78.5 Hyperlipidemia, unspecified; Z99.2 Dependence on renal dialysis; Z87.891 Personal history of nicotine dependence; Z79.4 Long term (current) use of insulin; Z79.899 Other long term (current) drug therapy; Z86.19 Personal history of other infectious and parasitic diseases; Z86.73 Personal history of transient ischemic attack (TIA), and cerebral infarction without residual deficits
CPT/HCPCS: 96365; J0690

== ENCOUNTER 2024-03-02 04:45 | Day surgery (SDC) | payer MEDICARE ==
[~2024-03-02 04:45] MED LIST changes: -CeFAZolin Sodium 1,000 MG in NS 50 ML IV SCH
[2024-03-02] MEDS ORDERED: CeFAZolin Sodium 1,000 MG in NS 50 ML IV SCH (06:00)
[2024-03-02 11:34] VITALS: BP 141/73
== END 2024-03-02 11:55 | disposition home or self-care (01) ==
LOC: ATC 04:45
DX: R78.81 Bacteremia (principal); B95.61 Methicillin susceptible Staphylococcus aureus infection as the cause of diseases classified elsewhere; E11.22 Type 2 diabetes mellitus with diabetic chronic kidney disease; I12.0 Hypertensive chronic kidney disease with stage 5 chronic kidney disease or end stage renal disease; N18.6 End stage renal disease; J96.01 Acute respiratory failure with hypoxia; G92.8 Other toxic encephalopathy; E78.5 Hyperlipidemia, unspecified; Z99.2 Dependence on renal dialysis; Z87.891 Personal history of nicotine dependence; Z79.4 Long term (current) use of insulin; Z79.899 Other long term (current) drug therapy
CPT/HCPCS: 96365; J0690

== ENCOUNTER 2024-03-03 06:01 | Day surgery (SDC) | payer MEDICARE ==
[~2024-03-03 06:01] MED LIST changes: +CeFAZolin Sodium 1,000 MG in NS 50 ML IV SCH
[2024-03-03 11:53] VITALS: BP 157/73
== END 2024-03-03 12:09 | disposition home or self-care (01) ==
LOC: ATC 06:01
DX: R78.81 Bacteremia (principal); B95.61 Methicillin susceptible Staphylococcus aureus infection as the cause of diseases classified elsewhere; E11.22 Type 2 diabetes mellitus with diabetic chronic kidney disease; I12.0 Hypertensive chronic kidney disease with stage 5 chronic kidney disease or end stage renal disease; N18.6 End stage renal disease; E78.5 Hyperlipidemia, unspecified; Z79.4 Long term (current) use of insulin; Z79.899 Other long term (current) drug therapy; Z87.891 Personal history of nicotine dependence; Z99.2 Dependence on renal dialysis; G92.8 Other toxic encephalopathy
CPT/HCPCS: 96365; J0690

== ENCOUNTER 2024-03-04 04:57 | Day surgery (SDC) | payer MEDICARE ==
[~2024-03-04 04:57] MED LIST changes: -CeFAZolin Sodium 1,000 MG in NS 50 ML IV SCH
[2024-03-04] MEDS ORDERED: CeFAZolin Sodium 1,000 MG in NS 50 ML IV SCH (06:00)
[2024-03-04 11:34] VITALS: BP 111/55
== END 2024-03-04 12:00 | disposition home or self-care (01) ==
LOC: ATC 04:57
DX: R78.81 Bacteremia (principal); B95.61 Methicillin susceptible Staphylococcus aureus infection as the cause of diseases classified elsewhere; G92.8 Other toxic encephalopathy; E78.5 Hyperlipidemia, unspecified; J96.01 Acute respiratory failure with hypoxia; E11.22 Type 2 diabetes mellitus with diabetic chronic kidney disease; I12.0 Hypertensive chronic kidney disease with stage 5 chronic kidney disease or end stage renal disease; N18.6 End stage renal disease; Z87.891 Personal history of nicotine dependence; Z99.2 Dependence on renal dialysis; Z79.4 Long term (current) use of insulin
CPT/HCPCS: 96365; J0690

== ENCOUNTER 2024-03-05 01:45 | Day surgery (SDC) | payer MEDICARE ==
[2024-03-05] MEDS ORDERED: CeFAZolin Sodium 1,000 MG in NS 50 ML IV SCH (06:00)
[2024-03-05 11:18] VITALS: BP 135/65
== END 2024-03-05 11:47 | disposition home or self-care (01) ==
LOC: ATC 01:45
DX: R78.81 Bacteremia (principal); B95.61 Methicillin susceptible Staphylococcus aureus infection as the cause of diseases classified elsewhere; E78.5 Hyperlipidemia, unspecified; E11.22 Type 2 diabetes mellitus with diabetic chronic kidney disease; I12.0 Hypertensive chronic kidney disease with stage 5 chronic kidney disease or end stage renal disease; N18.6 End stage renal disease; J96.01 Acute respiratory failure with hypoxia; Z79.4 Long term (current) use of insulin; Z79.899 Other long term (current) drug therapy; Z87.891 Personal history of nicotine dependence; Z99.2 Dependence on renal dialysis
CPT/HCPCS: 96365; J0690

== ENCOUNTER 2024-03-06 06:15 | Day surgery (SDC) | payer MEDICARE ==
[~2024-03-06 06:15] MED LIST changes: +CeFAZolin Sodium 1,000 MG in NS 50 ML IV SCH
[2024-03-06 11:35] VITALS: BP 135/73
== END 2024-03-06 11:59 | disposition home or self-care (01) ==
LOC: ATC 06:15
DX: R78.81 Bacteremia (principal); B95.61 Methicillin susceptible Staphylococcus aureus infection as the cause of diseases classified elsewhere; E11.22 Type 2 diabetes mellitus with diabetic chronic kidney disease; I12.0 Hypertensive chronic kidney disease with stage 5 chronic kidney disease or end stage renal disease; N18.6 End stage renal disease; E78.5 Hyperlipidemia, unspecified; G92.8 Other toxic encephalopathy; Z99.2 Dependence on renal dialysis; Z87.891 Personal history of nicotine dependence; Z79.4 Long term (current) use of insulin
CPT/HCPCS: 96365; J0690

== ENCOUNTER 2024-04-23 04:06 | Day surgery (SDC) | payer MEDICARE ==
[~2024-04-23 04:06] MED LIST changes: -CeFAZolin Sodium 1,000 MG in NS 50 ML IV SCH
[2024-04-23] MEDS ORDERED: Lidocaine HCl 4% Cream 5 GM ONE (08:02)
== END 2024-04-23 23:00 | disposition home or self-care (01) ==
LOC: WOUND 04:06
DX: E11.621 Type 2 diabetes mellitus with foot ulcer (principal); L97.421 Non-pressure chronic ulcer of left heel and midfoot limited to breakdown of skin; E11.51 Type 2 diabetes mellitus with diabetic peripheral angiopathy without gangrene; E11.40 Type 2 diabetes mellitus with diabetic neuropathy, unspecified; I12.0 Hypertensive chronic kidney disease with stage 5 chronic kidney disease or end stage renal disease; E11.22 Type 2 diabetes mellitus with diabetic chronic kidney disease; N18.6 End stage renal disease; E03.9 Hypothyroidism, unspecified; F17.200 Nicotine dependence, unspecified, uncomplicated; Z99.2 Dependence on renal dialysis
CPT/HCPCS: A9270; G0463

== ENCOUNTER 2024-04-30 03:14 | Day surgery (SDC) | payer MEDICARE ==
[2024-04-30] MEDS ORDERED: Lidocaine HCl 4% Cream 5 GM ONE (08:48)
== END 2024-04-30 23:00 | disposition home or self-care (01) ==
LOC: WOUND 03:14
DX: E11.621 Type 2 diabetes mellitus with foot ulcer (principal); L97.422 Non-pressure chronic ulcer of left heel and midfoot with fat layer exposed; E11.51 Type 2 diabetes mellitus with diabetic peripheral angiopathy without gangrene; I12.0 Hypertensive chronic kidney disease with stage 5 chronic kidney disease or end stage renal disease; E11.22 Type 2 diabetes mellitus with diabetic chronic kidney disease; N18.6 End stage renal disease; E11.40 Type 2 diabetes mellitus with diabetic neuropathy, unspecified
CPT/HCPCS: A9270

== ENCOUNTER 2024-05-05 04:41 | Day surgery (SDC) | payer MEDICARE | END 2024-05-05 23:00 | disposition home or self-care (01) | LOC: WOUND 04:41 | DX: E11.621 Type 2 diabetes mellitus with foot ulcer (principal); L97.422 Non-pressure chronic ulcer of left heel and midfoot with fat layer exposed; E11.22 Type 2 diabetes mellitus with diabetic chronic kidney disease; N18.6 End stage renal disease; E11.51 Type 2 diabetes mellitus with diabetic peripheral angiopathy without gangrene; Z99.2 Dependence on renal dialysis ==

== ENCOUNTER 2024-05-10 01:20 | Day surgery (SDC) | payer MEDICARE | END 2024-05-10 23:00 | disposition home or self-care (01) | LOC: WOUND 01:20 | DX: E11.621 Type 2 diabetes mellitus with foot ulcer (principal); L97.429 Non-pressure chronic ulcer of left heel and midfoot with unspecified severity; E11.51 Type 2 diabetes mellitus with diabetic peripheral angiopathy without gangrene; E11.22 Type 2 diabetes mellitus with diabetic chronic kidney disease; I12.0 Hypertensive chronic kidney disease with stage 5 chronic kidney disease or end stage renal disease; N18.6 End stage renal disease; Z99.2 Dependence on renal dialysis | CPT/HCPCS: G0463 ==

== ENCOUNTER → 2024-05-29 | Outpatient (CLI) | payer MEDICARE | END | disposition home or self-care (01) | LOC: LAB SHORT 08:21 → LAB 08:21 | DX: N18.6 End stage renal disease (principal) | CPT/HCPCS: 82310 ==

== ENCOUNTER 2024-06-23 08:59 | Day surgery (SDC) | payer MEDICARE ==
[~2024-06-23] VITALS: Ht 172.7 cm; Wt 97.1 kg
[~2024-06-23 08:59] MED LIST changes: +HUMULIN N100 UNIT/3 SQ; +TIMO.25OPS BOTHEYES
[2024-06-23 09:34] VITALS: BP 134/75
[2024-06-23] MEDS ORDERED: NS 2,000 ML IV ONE (09:56)
[2024-06-23] MEDS ORDERED: Heparin Sodium 1000 Units/ML 10ML MDV ONE (09:56)
[2024-06-23] MEDS ORDERED: Lidocaine HCl 2% 20 ML MDV ONE (09:57)
[2024-06-23] MEDS ORDERED: Nitroglycerin 2 MG/20 ML BTL ONE (09:57)
[2024-06-23] MEDS ORDERED: Midazolam HCl 1MG / ML 2ML Vial ONE (10:24)
[2024-06-23] MEDS ORDERED: FentaNYL Citrate 50 MCG/ML 2 ML Injection ONE (10:24)
[2024-06-23 11:31] VITALS: BP 148/86
[2024-06-23] MEDS ORDERED: Clopidogrel Bisulfate 75 MG Tab ONE (11:37)
[2024-06-23 11:45] VITALS: BP 111/80
[2024-06-23 11:50] VITALS: BP 120/77
[2024-06-23] MEDS ORDERED: CLOP75 PO (11:59)
[2024-06-23 12:00] VITALS: BP 105/63
--- NOTE | 2024-06-23 12:23 | NUR ---
RETURNED FROM PROCEDURE EARLIER, VSS, REQUESTED TO SIT UP IN [facility] AND MOVED TO THAT LOCATION EARLIER; SITE OF FISTULA REMAINS INTACT, GOOD THRILL/BRUIT, INSTRUCTIONS IN PROGRESS TO PATIENT AT PRESENT FOR D/C HOME, CALLED PHARMACY EARLIER FOR PLAVIX DOSE AND GIVEN [address] ORALLY EARLIER WELL PER PROVIDER INSTRUCTIONS. D/C OTHERWISE PENDING.
--- NOTE | 2024-06-23 13:24 | NUR ---
CARE OF PT ASSUMED AT 1245. PT DENIES COMPLAINTS. DR AVILES AT BEDSIDE TO CHECK ON PATIENT. FAINT THRILL FELT BY RUTH NAJERA, THEN CHECKED BY DR AVILES; OKAY TO BE DISCHARGED HOME PER DR AVILES. VERBAL AND WRITTEN DISCHARGE INSTRUCTIONS GIVEN TO PT AQND PT'S W CLEAR UNDERSTANDING. PT DC'D HOME IN STABLE CONDITION AT 1308 VIA WHEELCHAIR. PT DC'D HOME IN CARE OF PT'S .
== END 2024-06-23 14:03 | disposition home or self-care (01) ==
LOC: MHTC 08:59
DX: I12.0 Hypertensive chronic kidney disease with stage 5 chronic kidney disease or end stage renal disease (principal); E11.22 Type 2 diabetes mellitus with diabetic chronic kidney disease; N18.6 End stage renal disease; J44.9 Chronic obstructive pulmonary disease, unspecified; E78.5 Hyperlipidemia, unspecified; E03.9 Hypothyroidism, unspecified; I87.2 Venous insufficiency (chronic) (peripheral); K57.30 Diverticulosis of large intestine without perforation or abscess without bleeding; K42.9 Umbilical hernia without obstruction or gangrene; Z86.73 Personal history of transient ischemic attack (TIA), and cerebral infarction without residual deficits; Z87.891 Personal history of nicotine dependence; Z79.4 Long term (current) use of insulin; Z79.890 Hormone replacement therapy; Z79.899 Other long term (current) drug therapy; Z99.2 Dependence on renal dialysis
CPT/HCPCS: 36836; 76937; 93005; 93010; 99152; 99153; A9270; C1725; C1769; C1889; C1894; J1644; J2250; J3010; J7030

== ENCOUNTER → 2024-07-15 | Outpatient (CLI) | payer MEDICARE ==
[~2024-07-15] MED LIST changes: +CLOP75 PO
[2024-07-19 18:58] LABS: ALBUMIN 3.53 g/dL (3.75-5.01); ALPHA 1 GLOBULIN 0.32 g/dL (0.19-0.46); BETA GLOBULIN 0.75 g/dL (0.48-1.10); GAMMA 1.01 g/dL (0.62-1.51); TOTAL PROTEIN,SERUM 6.2 g/dL (6.3-8.2)
== END ==
LOC: LAB 17:02 → LAB SHORT 17:02
PROVIDERS: Internal Medicine Hematology & Oncology
DX: E83.52 Hypercalcemia (principal)
CPT/HCPCS: 84155; 84165

== ENCOUNTER 2024-08-25 08:40 | Day surgery (SDC) | payer MEDICARE ==
[~2024-08-25] VITALS: Ht 172.7 cm; Wt 96.0 kg
[2024-08-25 09:25] VITALS: BP 150/106
[2024-08-25 09:30] VITALS: BP 143/81
[2024-08-25] MEDS ORDERED: Heparin Sodium 1000 Units/ML 10ML MDV ONE ×2 (10:20→10:31)
[2024-08-25] MEDS ORDERED: NS 0 ML IV ONE ×2 (10:20→10:39)
[2024-08-25] MEDS ORDERED: Nitroglycerin 2 MG/20 ML BTL ONE (10:28)
[2024-08-25] MEDS ORDERED: Verapamil HCL 2.5 MG/ML 2ML Injection ONE (10:28)
[2024-08-25] MEDS ORDERED: Midazolam HCl 1MG / ML 2ML Vial ONE (10:38)
[2024-08-25] MEDS ORDERED: FentaNYL Citrate 50 MCG/ML 2 ML Injection ONE (10:39)
--- NOTE | 2024-08-25 10:59 | NUR ---
DR AVILES IN ROOM DISCUSSING PLAN OF CARE. PT PROCEDURE CANCELLED AT THIS TIME. SURGERY CONSULT. IV DC'D. CATH INTACT. PRESSURE DSG IN PLACE. NO BLEEDING OR HEMATOMA NOTED. VSS. PT DC TO HOME
== END 2024-08-25 11:00 | disposition home or self-care (01) ==
LOC: MHTC 08:40
DX: I12.0 Hypertensive chronic kidney disease with stage 5 chronic kidney disease or end stage renal disease (principal); N18.6 End stage renal disease; E11.22 Type 2 diabetes mellitus with diabetic chronic kidney disease; J44.9 Chronic obstructive pulmonary disease, unspecified; E78.5 Hyperlipidemia, unspecified; E03.9 Hypothyroidism, unspecified; Z87.891 Personal history of nicotine dependence; Z79.899 Other long term (current) drug therapy; Z79.4 Long term (current) use of insulin; Z79.890 Hormone replacement therapy; Z53.9 Procedure and treatment not carried out, unspecified reason
CPT/HCPCS: 93005; 93010; J1644; J2250; J3010; J7030